=== PATIENT | male | born 1985 | race Caucasian/White ===

== ENCOUNTER 2020-03-02 08:50 | Emergency (ER) | payer MEDICAID, SELFPAY ==
[2020-03-02] VITALS (9 sets, daily range): BP systolic 104–136; BP diastolic 61–76; PULSE 71–87; RESP 16–18; TEMP 36.1–37.4; O2SAT 95–99; BMI 25.0
--- NOTE | 2020-03-02 09:50 | PC.NURSE ---
PT MOVED TO MAIN ED FOR FURTHER WORK UP.
--- NOTE | 2020-03-02 09:55 | CT_ITS ---
EXAMINATION: CT FOOT WITH CONTRAST, LEFT CLINICAL INFORMATION: Infection, abscess. COMPARISON: None TECHNIQUE: CT of the left foot is performed following intravenous administration of 85 mL Omnipaque 350 iodinated contrast. Sagittal and coronal reformats were performed. This CT examination was performed using dose optimization techniques as appropriate, variously including the following: *Automated exposure control *Adjustment of mA and/or kV according to patient size (this includes techniques or standardized protocols for targeted exams where dose is matched to indication/reason for exam; i.e. extremities or head) *Use of iterative reconstruction technique DLP: 153 mGy-cm FINDINGS: There is an irregular subcutaneous collection at the dorsal medial aspect of the midfoot measuring approximately 3.2 x 1.4 x 3.6 cm which is consistent with an abscess. Surrounding subcutaneous edema/enhancement consistent with cellulitis. No radiopaque foreign body. No underlying cortical irregularity or periostitis to suggest osteomyelitis. No acute osseous abnormalities. CT/CT foot LT w con IMPRESSION: Probable subcutaneous abscess at the dorsal medial aspect of the midfoot without evidence of underlying osteomyelitis.
--- NOTE | 2020-03-02 11:05 | ED_ITS ---
HPI - Skin/Abscess/Foreign Bdy General Chief complaint: Skin/Abscess/Foreign Body Stated complaint: abscess Time Seen by Provider: 03/02/20 09:30 Source: patient Mode of arrival: ambulatory History of Present Illness HPI narrative: 34-year-old male with no significant PMHx presenting to ED complaining of infection to left foot x8 days. Admits foot was red/inflamed and went to 4 days ago, was prescribed Bactrim /Keflex which he has been taking without relief. Reports area swelled and opened up with pus-like drainage today. Denies fever, chills, numbness /tingling complaint: abscess/boil Onset (ago): day(s) Related Data Previous Rx's Medication Instructions Recorded clindamycin HCl 450 mg PO Q8H 7 Days #32 cap 03/02/20 Allergies Allergy/AdvReac Type Severity Reaction Status Date / Time No Known Allergies Allergy Verified 03/02/20 09:10 [No Known Allergies*] Review of Systems Review of Systems: Constitutional: No Weight loss, No Fever, No Chills Musculoskeletal: + joint pain, No Myalgias, No Joint Swelling Skin: + Skin Lesions, No rash Neuro: No Weakness, No Numbness, No Paresthesias Yes all other systems are reviewed and are negative [facility] Past Medical History Attestation statement: The following information was validated with the patient. Medical History (Updated 03/02/20 @ 17:01 by VENU Farias) No known health problems Social History Social History Smoking Status: Current every day smoker Use of substances other than those prescribed or required for medical reasons: Yes Substance Use Type: Marijuana Any prior treatment program specific to substance use: No Advance Directives: Yes Advance Directives Information Provided: No Advance Directives on File: No Physical Exam Vital Signs: Vital Signs: Vital Signs Temp Pulse Resp BP Pulse Ox 03/02/20 16:55 98.8 F 85 16 128/66 03/02/20 16:22 16 03/02/20 16:12 99.4 F 87 18 106/66 97 03/02/20 15:03 18 03/02/20 14:58 99.4 F 84 18 104/64 95 03/02/20 14:00 99.2 F 71 16 120/72 97 03/02/20 12:02 99.1 F 71 16 113/61 97 03/02/20 11:04 98.8 F 85 16 119/69 03/02/20 09:07 97.0 F 78 18 136/76 99 Body Mass Index 25.0 Const: General: cooperative and healthy appearing Orientation/consciousness: patient oriented x3 Limitations: no limitations HENMT: Head: Yes normal to inspection Ears: hearing grossly normal bilaterally General nose exam: Normal external nose present Face and sinus: Yes normal facial exam Eyes: General: appearance normal, both eyes and all related structures EOM: EOMs intact bilaterally Neck: Neck: Yes normal visual inspection Resp: Effort & Inspection: normal respiratory effort Cardio: Peripheral pulses: Peripheral pulses 2+ throughout Skin: Other: + medial aspect left foot with swollen draining abscess with centralized darkening/blackness ?necrosis. + fluctuance/induration. Mild surrounding erythema, however improving compared to prior outlined area. NV intact. No streaking Neuro: General: patient oriented x3 Gait exam (Neuro): Normal gait present Extrem: General: Yes normal to inspection Course Course Course Narrative: -no leukocytosis, ESR/CRP elevated, lactate negative -1451--still pending CT read. Have called CT miter cutter multiple times, wanda piper radiologist is reading study now. Patient is anxious, would like to leave/ be discharged JUAN. I spoke to him, agreed upon giving Ativan/morphine for pain/agitation -1520--CT showing subcutaneous abscess at the dorsal medial aspect of the midfoot without evidence of an underlying osteomyelitis > performed I&D at bedside 1550-- discussed admission again with patient, which he is still reluctant and not agreeable to >>patient agreeable to be wheeled outside in wheelchair to smoke cigarette and then will stay for admission of IV abx -1656--patient was evaluated by hospitalist, and reported he no longer wants to be admitted. I discussed with patient risks of leaving including , sepsis, losing his foot, etc, and that he would need to sign out against medical advice, he verbalized understanding and is competent to make his own decisions, A&Ox3. Discussed that he is welcome to return. He verbalized understanding and will sign out AMA Procedures Abscess I/D Site: foot Side (if applicable): left Local Anesthetic: lidocaine 1% Amount of anesthesia used (mL): 3.5 Technique: incised with blade Packing used?: none MDM - Skin/Abscess/Foreign Bdy MDM Narrative Medical decision making narrative: 34-year-old male with no significant PMHx presenting to ED complaining of infection to left foot x8 days. On exam VSS, NAD, afebrile, nontoxic appearing. Concern for abscess/cellulitis vs osteomyelitis vs necrosis vs ?brown recluse Spider bite. Low concern for severe sepsis at this time. Plan: Labs, blood cultures, lactate, CT, IV Clindamycin, reassess, anticipate admission Lab Data Result diagrams: 03/02/20 11:04 03/02/20 11:03 Labs: Lab Results 03/02/20 03/02/20 03/02/20 Range/Units 11:03 11:03 11:03 WBC (4.8-10.8) X10*3/uL RBC (4.60-5.80) X10*6/uL Hgb (14.0-18.0) g/dl Hct (42-52) % MCV (80-98) fL MCH (27.0-33.0) pg MCHC (31.0-36.0) g/dl RDW (11.0-16.0) % Plt Count (160-400) X10*3/uL MPV (9.4-12.4) fL Immature Gran % (Auto) (0.0-0.4) % Neut % (Auto) (45-73) % Lymph % (Auto) (20-40) % [place] % (Auto) (2-11) % Eos % (Auto) (0-4) % Baso % (Auto) (0-2) % Lymph # (Auto) (1.2-4.9) X10*3/uL [place] # (Auto) (0.1-1.2) X10*3/uL Eos # (Auto) (0.0-0.4) X10*3/uL Baso # (Auto) (0.0-0.2) X10*3/uL Abs Immat Gran (auto) (0.00-0.03) X10*3/uL Absolute Neuts (auto) (2.0-8.3) X10*3/uL Absolute Nucleated RBC (0.0-0.012) X10*3/uL Nucleated RBC % (auto) (0.0-0.2) /100WBC ESR 69 H (0-15) MM/HR Sodium 137 (135-145) mmol/L Potassium 4.1 (3.3-5.1) mmol/l Chloride 103 (96-108) mmol/L Carbon Dioxide 23 (22-29) mmol/L Anion Gap 15 (12-20) BUN 15 (9-16) mg/dL Creatinine 0.78 (0.5-1.4) mg/dL Estim Creat Clear Calc 124.7 Estimated GFR > 60 Random Glucose 93 (60-115) mg/dL Lactic Acid 0.5 (0.5-2.0) mmol/L Calcium 8.7 (8.4-10.2) mg/dL C-Reactive Protein 11.93 H (< or = 0.50) mg/dL 03/02/20 Range/Units 11:04 WBC 9.8 (4.8-10.8) X10*3/uL RBC 4.44 L (4.60-5.80) X10*6/uL Hgb 10.5 L (14.0-18.0) g/dl Hct 32.7 L (42-52) % MCV 73.6 L (80-98) fL MCH 23.6 L (27.0-33.0) pg MCHC 32.1 (31.0-36.0) g/dl RDW 14.1 (11.0-16.0) % Plt Count 254 (160-400) X10*3/uL MPV 10.1 (9.4-12.4) fL Immature Gran % (Auto) 0.3 (0.0-0.4) % Neut % (Auto) 88.6 H (45-73) % Lymph % (Auto) 8.0 L (20-40) % [place] % (Auto) 2.9 (2-11) % Eos % (Auto) 0.0 (0-4) % Baso % (Auto) 0.2 (0-2) % Lymph # (Auto) 0.8 L (1.2-4.9) X10*3/uL [place] # (Auto) 0.3 (0.1-1.2) X10*3/uL Eos # (Auto) 0.0 (0.0-0.4) X10*3/uL Baso # (Auto) 0.0 (0.0-0.2) X10*3/uL Abs Immat Gran (auto) 0.03 (0.00-0.03) X10*3/uL Absolute Neuts (auto) 8.7 H (2.0-8.3) X10*3/uL Absolute Nucleated RBC 0.000 (0.0-0.012) X10*3/uL Nucleated RBC % (auto) 0.0 (0.0-0.2) /100WBC ESR (0-15) MM/HR Sodium (135-145) mmol/L Potassium (3.3-5.1) mmol/l Chloride (96-108) mmol/L Carbon Dioxide (22-29) mmol/L Anion Gap (12-20) BUN (9-16) mg/dL Creatinine (0.5-1.4) mg/dL Estim Creat Clear Calc Estimated GFR Random Glucose (60-115) mg/dL Lactic Acid (0.5-2.0) mmol/L Calcium (8.4-10.2) mg/dL C-Reactive Protein (< or = 0.50) mg/dL Discharge Plan Discharge Clinical Impression: Abscess Cellulitis Qualifiers: Site of cellulitis: extremity Site of cellulitis of extremity: lower extremity Laterality: left Qualified Code(s): L03.116 - Cellulitis of left lower limb Patient Disposition: Left Against Medical Advice Instructions: Cellulitis (ED), Abscess (ED), Against Medical Advice (ED) Additional Instructions: YOU HAVE A SERIOUS INFECTION IN YOUR FOOT, YOU ARE AT RISK OF LOSING YOUR FOOT, BECOMING SEPTIC, OR THE INFECTION TRAVELING TO YOUR BONE, AND POSSIBLY NEEDING AN AMPUTATION YOUR SIGNING OUT AGAINST MEDICAL ADVICE YOU NEED IV ANTIBIOTICS AND ADMISSION TO THE HOSPITAL YOUR WELCOME TO RETURN TO THE ED I SENT CLINDAMYCIN, ANTIBIOTIC TO YOUR PHARMACY IN CASE YOU DO NOT RETURN IF THE INFECTION WORSENS, YOU HAVE FEVERS, AREA BEGINS/CONTINUES TO DRAIN, REDNESS OR SWELLING WORSENS RETURN TO THE ED IMMEDIATELY Prescriptions: New clindamycin HCl 300 mg capsule 450 mg PO Q8H 7 Days Qty: 32 RF: 0 Referrals: Physician,Unknown [Primary Care Provider] - 1 day
[2020-03-02 11:14] LABS: Basophils Percent Auto 0.2 % (0-2); Hematocrit 32.7 % (42-52); Hemoglobin 10.5 g/dl (14.0-18.0); Imm Gran Abs Auto 0.03 X10*3/uL (0.00-0.03); Imm Gran Pct Auto 0.3 % (0.0-0.4); Lymphocytes Absolute Auto 0.8 X10*3/uL (1.2-4.9); MANUAL DIFF FLAG NO; Mean Corpuscular HGB Conc 32.1 g/dl (31.0-36.0); Mean Corpuscular Hemoglobin 23.6 pg (27.0-33.0); Mean Corpuscular Volume 73.6 fL (80-98); Mean Platelet Volume 10.1 fL (9.4-12.4); Monocytes Absolute Auto 0.3 X10*3/uL (0.1-1.2); Monocytes Percent Auto 2.9 % (2-11); Neutrophils Absolute Auto 8.7 X10*3/uL (2.0-8.3); Neutrophils Percent Auto 88.6 % (45-73); Platelet Count 254 X10*3/uL (160-400); Red Blood Count 4.44 X10*6/uL (4.60-5.80); Red Cell Distribution Width 14.1 % (11.0-16.0); White Blood Count 9.8 X10*3/uL (4.8-10.8)
[2020-03-02] MEDS: Clindamycin Phosphate/D5W 600 MG/50 ML PIGGYBACK 100 MG IV (11:40)
[2020-03-02 11:45] LABS: Lactic Acid 0.5 mmol/L (0.5-2.0)
[2020-03-02 11:48] LABS: Anion Gap 15 (12-20); Blood Urea Nitrogen 15 mg/dL (9-16); C Reactive Protein 11.93 mg/dL (< or = 0.50); Calcium 8.7 mg/dL (8.4-10.2); Carbon Dioxide 23 mmol/L (22-29); Chloride 103 mmol/L (96-108); Creatinine Clr Calc Pharmacy 124.7; Estimated Glomerular Filt Rate > 60; Glucose Random 93 mg/dL (60-115); Potassium 4.1 mmol/l (3.3-5.1); Sodium 137 mmol/L (135-145)
[2020-03-02] MEDS: Gabapentin 600 MG TABLET 1200 MG PO (11:53)
[2020-03-02] MEDS: Baclofen 20 MG TABLET PO (11:59)
[2020-03-02 12:30] LABS: Erythrocyte Sedimentation Rate 69 MM/HR (0-15)
[2020-03-02] MEDS: iohexoL 350 MG/ML 100 ML INFUS..BTL 85 ML IV (13:12)
[2020-03-02] MEDS: Ibuprofen 800 MG TABLET PO (13:37)
[2020-03-02] MEDS: LORazepam 2 MG/ML VIAL 1 MG IVPUSH (15:00)
[2020-03-02] MEDS: Acetaminophen 325 MG TABLET 650 MG PO (15:00)
[2020-03-02] MEDS: Morphine Sulfate 2 MG/ML CARTRIDGE IVPUSH (15:03)
[2020-03-02] MEDS: Morphine Sulfate 4 MG/ML CARTRIDGE IVPUSH (16:22)
--- NOTE | 2020-03-02 16:29 | PC.NURSE ---
PT MEDICATED WITH 4MG OF MORPHINE STATES THEY BETTER MEDICATE ME UPSTAIRS OR ILL GO OUT AND MEDICATE MYSELF
--- NOTE | 2020-03-02 16:29 | PC.NURSE ---
HOSPITALIST AT BEDSIDE FOR ADMISSION ASSESSMENT
== END 2020-03-02 17:47 | disposition home or self-care (01) ==
PROVIDERS: Physician Assistant; Emergency Provider Emergency Medicine
DX: L02.612 Cutaneous abscess of left foot (principal); M79.672 Pain in left foot; F17.200 Nicotine dependence, unspecified, uncomplicated; Z71.6 Tobacco abuse counseling
CPT/HCPCS: 10060; 36415; 73701; 80048; 83605; 85025; 85652; 86140; 87040; 87071; 87147; 87186; 87205; 96365; 96375; 96376; 99284; J2060; J2270

== ENCOUNTER 2020-03-02 18:20 | Emergency (ER) | payer MEDICAID, SELFPAY ==
[2020-03-02 18:49] VITALS: BP 134/70; PULSE 90; RESP 18; TEMP 36.9; O2SAT 98; BMI 25.0
--- NOTE | 2020-03-02 20:09 | PC.NURSE ---
At arrival to 22h bed pt became upset that he was not in a room, stated that being in hallway made him feel defensive . Pt refused to undress, refused to provide a urine sample and threatened to leave AMA for the second time today. [facility]
--- NOTE | 2020-03-02 20:11 | PC.NURSE ---
hospitalist at bedside for admission.
--- NOTE | 2020-03-02 20:14 | ED_ITS ---
HPI - Wound/Laceration General Chief Complaint: Wound/Laceration Stated Complaint: FOOT PAIN Time Seen by Provider: 03/02/20 20:08 Source: patient Mode of arrival: ambulatory Limitations: no limitations History of Present Illness HPI narrative: Returns for Left foot abs s/p I&D here earlier left AMA now requesting admit as previously rec. HX of IVD use as teen per pt - No DM States small pimple area to lateral foot 12 days ago with to urgent care given rx for keflex/ Bactrim wound has become worse Seen few hours ago in ED had labs/ lactic/ BC No new sx's Onset (ago): week(s) Location: other (Left foot ) Patient tetanus UTD: Yes Associated symptoms: pain Treatments prior to arrival: bandage Related Data Home Medications Medication Instructions Recorded Confirmed baclofen 20 mg PO TID 03/02/20 03/02/20 gabapentin 1,200 mg PO TID 03/02/20 03/02/20 Allergies Allergy/AdvReac Type Severity Reaction Status Date / Time No Known Allergies Allergy Verified 03/02/20 18:49 [No Known Allergies*] Review of Systems Review of Systems: Constitutional: No Weight loss, No Fever, No Chills, No Night Sweats, No Fatigue, No Malaise ENT/Mouth: No Hearing loss, No Ear Pain, No Nasal Congestion, No Sinus Pain, No Hoarseness, No sore throat, No Rhinorrhea, No Swallowing Difficulty Eyes: No Eye Pain, No Swelling, No Redness, No Foreign Body, No Discharge, No Vision Changes Cardiovascular: No Chest Pain, No SOB, No Dyspnea on Exertion, No Orthopnea, No Edema, No Palpitations Respiratory: No Cough, No Sputum, No Wheezing, No Smoke Exposure, No Dyspnea Gastrointestinal: No Nausea, No Vomiting, No Diarrhea, No Constipation, No abdominal Pain, No Hematochezia, No Melena Genitourinary: no irregular bleeding, No Dysuria, No Urinary Frequency, No Hematuria, No Urinary Incontinence, No Urgency, No Flank Pain, No Urinary Flow Changes, No Hesitancy Musculoskeletal: No joint pain, No Myalgias, No Joint Swelling Skin: As notedin HPI, extensive IV track young to bilateral UE, no acute inf ection Neuro: No Weakness, No Numbness, No Paresthesias, No Loss of Consciousness, No Dizziness, No Headache Psych: No Anxiety/Panic, No Depression, No SI/HI/AH/VH, No Social Issues Heme/Lymph: No Bruising, No Bleeding,No Lymphadenopathy Endocrine: No Polyuria, No Polydipsia, No Temperature Intolerance Yes all other systems are reviewed and are negative [facility] Past Medical History Attestation statement: The following information was validated with the patient. Medical History Asthma Neuropathy Social History Social History Smoking Status: Current every day smoker Substance Use Type: Marijuana Advance Directives: No Advance Directives Information Provided: No Physical Exam Vital Signs: Vital Signs: Vital Signs Temp Pulse Resp BP Pulse Ox 03/02/20 18:49 98.5 F 90 18 134/70 98 Body Mass Index 25.0 .reviewed Const: General: cooperative and healthy appearing; No acute distress or intoxicated appearing Nutritional Appearance: average body habitus Orientation/consciousness: patient oriented x3 HENMT: Head: Yes normal to inspection Ears: hearing grossly normal bilaterally Eyes: General: appearance normal, both eyes and all related structures Visual Diaz: normal visual diaz by confrontation Neck: Neck: Yes normal visual inspection and No tender Thyroid: Thyroid normal Chest: Chest palpation & inspection: normal inspection of the chest Resp: Effort & Inspection: normal respiratory effort Cardio: Jugular venous distension: no JVD GI: Inspection: Yes normal to inspection Percussion: Yes normal to percussion Auscultation: normal bowel sounds : General: Yes no CVA tenderness Back/Spine/Pelvis: Back: no CVA tenderness Skin: General skin exam: no rashes or lesions noted Neuro: General: patient oriented x3 Extrem: General: Yes normal to inspection Course Course Course Narrative: No ss of sepsis Labs/ CT foot reviewed IV started by myself due to hard stick CDW hospitalist for admit. MDM - Wound/Laceration Lab Data Result diagrams: 03/02/20 20:48 03/02/20 20:48 Labs: Lab Results 03/02/20 03/02/20 Range/Units 20:48 20:48 WBC 6.5 (4.8-10.8) X10*3/uL RBC 4.77 (4.60-5.80) X10*6/uL Hgb 11.0 L (14.0-18.0) g/dl Hct 35.6 L (42-52) % MCV 74.6 L (80-98) fL MCH 23.1 L (27.0-33.0) pg MCHC 30.9 L (31.0-36.0) g/dl RDW 14.3 (11.0-16.0) % Plt Count 274 (160-400) X10*3/uL MPV 10.2 (9.4-12.4) fL Immature Gran % (Auto) 0.2 (0.0-0.4) % Neut % (Auto) 48.0 (45-73) % Lymph % (Auto) 43.4 H (20-40) % [place] % (Auto) 8.2 (2-11) % Eos % (Auto) 0.0 (0-4) % Baso % (Auto) 0.2 (0-2) % Lymph # (Auto) 2.8 (1.2-4.9) X10*3/uL [place] # (Auto) 0.5 (0.1-1.2) X10*3/uL Eos # (Auto) 0.0 (0.0-0.4) X10*3/uL Baso # (Auto) 0.0 (0.0-0.2) X10*3/uL Abs Immat Gran (auto) 0.01 (0.00-0.03) X10*3/uL Absolute Neuts (auto) 3.1 (2.0-8.3) X10*3/uL Absolute Nucleated RBC 0.000 (0.0-0.012) X10*3/uL Nucleated RBC % (auto) 0.0 (0.0-0.2) /100WBC Sodium 141 (135-145) mmol/L Potassium 4.4 (3.3-5.1) mmol/l Chloride 102 (96-108) mmol/L Carbon Dioxide 23 (22-29) mmol/L Anion Gap 20 (12-20) BUN 15 (9-16) mg/dL Creatinine 0.92 (0.5-1.4) mg/dL Estim Creat Clear Calc 105.7 Estimated GFR > 60 Random Glucose 125 H (60-115) mg/dL Calcium 8.7 (8.4-10.2) mg/dL Total Bilirubin 0.2 (0.0-1.0) mg/dL AST 24 (5-37) U/L ALT 8 (0-40) U/L Alkaline Phosphatase 96 (39-117) U/L Total Protein 8.3 H (6.5-8.0) g/dL Albumin 4.3 (3.5-5.0) g/dL Discharge Plan Discharge Clinical Impression: Cellulitis, Abscess Patient Disposition: Admitted As Inpatient Prescriptions: No Action gabapentin 600 mg Tablet 1,200 mg PO TID RF: 0 baclofen 20 mg Tablet 20 mg PO TID RF: 0
[2020-03-02 20:54] LABS: MANUAL DIFF FLAG NO
[2020-03-02 20:55] LABS: Basophils Percent Auto 0.2 % (0-2); Hematocrit 35.6 % (42-52); Imm Gran Abs Auto 0.01 X10*3/uL (0.00-0.03); Imm Gran Pct Auto 0.2 % (0.0-0.4); Lymphocytes Absolute Auto 2.8 X10*3/uL (1.2-4.9); Lymphocytes Percent Auto 43.4 % (20-40); Mean Corpuscular HGB Conc 30.9 g/dl (31.0-36.0); Mean Corpuscular Hemoglobin 23.1 pg (27.0-33.0); Mean Corpuscular Volume 74.6 fL (80-98); Mean Platelet Volume 10.2 fL (9.4-12.4); Monocytes Absolute Auto 0.5 X10*3/uL (0.1-1.2); Monocytes Percent Auto 8.2 % (2-11); Neutrophils Absolute Auto 3.1 X10*3/uL (2.0-8.3); Platelet Count 274 X10*3/uL (160-400); Red Blood Count 4.77 X10*6/uL (4.60-5.80); Red Cell Distribution Width 14.3 % (11.0-16.0); White Blood Count 6.5 X10*3/uL (4.8-10.8)
--- NOTE | 2020-03-02 21:13 | PC.NURSE ---
pt left ER with IV in place to go to parking lot and smoke cigarette. RN and security with him .Pt wants to stay, pt now back in bed.
[2020-03-02 21:30] LABS: Alanine Aminotransferase 8 U/L (0-40); Albumin Level 4.3 g/dL (3.5-5.0); Alkaline Phosphatase 96 U/L (39-117); Anion Gap 20 (12-20); Aspartate Amino Transferase 24 U/L (5-37); Bilirubin Total 0.2 mg/dL (0.0-1.0); Blood Urea Nitrogen 15 mg/dL (9-16); Calcium 8.7 mg/dL (8.4-10.2); Carbon Dioxide 23 mmol/L (22-29); Chloride 102 mmol/L (96-108); Creatinine Clr Calc Pharmacy 105.7; Estimated Glomerular Filt Rate > 60; Glucose Random 125 mg/dL (60-115); Potassium 4.4 mmol/l (3.3-5.1); Sodium 141 mmol/L (135-145); Total Protein 8.3 g/dL (6.5-8.0)
[2020-03-02] MEDS: Piperacillin Sodium/Tazobactam 4.5 GM in 0.9 % Sodium Chloride 100 ML IV (21:31)
[2020-03-02] MEDS: 0.9 % Sodium Chloride 500 ML 1000 ML IV (21:32)
[2020-03-02 21:46] VITALS: BP 156/75; PULSE 86; RESP 16; TEMP 37.1; O2SAT 98
--- NOTE | 2020-03-02 21:47 | PC.NURSE ---
Pt is calm. In bed. Refused to give urine during trip to . Is falling asleep only slightly and is easily aroused. Pt became diaphoretic, beads of sweat on forehead. States i'm just in pain . Texting on and off. Pt is bothered by this RN's questioning and asking that I leave him alone. Pt wearing sunglasses at times while in briceño bed. Pupils 4-5mm.
--- NOTE | 2020-03-02 21:54 | PC.NURSE ---
pt refusing to give urine sample. rude to the staff, impatient and asking to go upstairs.
[2020-03-02 22:23] LABS: SARS COV2 PCR INHOUSE NEGATIVE (Negative)
--- NOTE | 2020-03-02 22:37 | PM.IMHP ---
History of Present Illness Date of Service: 03/02/20 Chief Complaint: Foot abscess This is a 34-year-old male with past medical history of asthma as well as nondiabetic neuropathy who presents to the hospital with foot abscess. Patient initially states presented to the hospital in the a.m. stating that he has had this foot abscess for 4 days. He underwent I&D in the emergency room and the plan was to admit him but patient left AMA due to family matters. He returns now stating that he would like to be admitted for treatment of his foot abscess. The abscess started 4 days ago, initially was a round small black swelling that subsequently became red, more swollen, and more painful. Patient went to urgent care and he was given Keflex as well as [facility] Medical History Asthma Neuropathy Social History Smoking Status: Current every day smoker Substance Use Type: Marijuana Advance Directives: No Advance Directives Information Provided: No Meds Allergies Allergy/AdvReac Type Severity Reaction Status Date / Time No Known Allergies Allergy Verified 03/02/20 18:49 [No Known Allergies*] Home Medications Medication Instructions Recorded Confirmed Type baclofen 20 mg PO TID 03/02/20 03/02/20 History gabapentin 1,200 mg PO TID 03/02/20 03/02/20 History Physical Exam Vital Signs and Narrative: Vital Signs: Last Vital Signs Temp 98.7 F 03/02/20 21:46 Pulse 86 03/02/20 21:46 Resp 16 03/02/20 21:46 BP 156/75 H 03/02/20 21:46 Pulse Ox 98 03/02/20 21:46 Body Mass Index 25.0 Results Labs Labs: Laboratory Tests 03/02/20 03/02/20 03/02/20 20:48 20:48 21:19 WBC 6.5 RBC 4.77 Hgb 11.0 L Hct 35.6 L MCV 74.6 L MCH 23.1 L MCHC 30.9 L RDW 14.3 Plt Count 274 MPV 10.2 Immature Gran % (Auto) 0.2 Neut % (Auto) 48.0 Lymph % (Auto) 43.4 H [place] % (Auto) 8.2 Eos % (Auto) 0.0 Baso % (Auto) 0.2 Lymph # (Auto) 2.8 [place] # (Auto) 0.5 Eos # (Auto) 0.0 Baso # (Auto) 0.0 Abs Immat Gran (auto) 0.01 Absolute Neuts (auto) 3.1 Absolute Nucleated RBC 0.000 Nucleated RBC % (auto) 0.0 Sodium 141 Potassium 4.4 Chloride 102 Carbon Dioxide 23 Anion Gap 20 BUN 15 Creatinine 0.92 Estim Creat Clear Calc 105.7 Estimated GFR > 60 Random Glucose 125 H Calcium 8.7 Total Bilirubin 0.2 AST 24 ALT 8 Alkaline Phosphatase 96 Total Protein 8.3 H Albumin 4.3 Coronavirus (PCR) NEGATIVE
[2020-03-02 22:46] VITALS: BP 122/65; PULSE 78; RESP 18; TEMP 37.3; O2SAT 97
--- NOTE | 2020-03-02 22:58 | PC.NURSE ---
PT MAKING MULTIPLE ATTEMPTS TO LEAVE ED TO SMOKE A CIGARETTE. PT WAITING TO BE ADMITTED. HAD IV IN ARM. EXPLAINED TO PATIENT MULTIPLE TIMES BY MULTIPLE STAFF THAT HE COULD NOT LEAVE TO SMOKE. SECURITY TO BEDSIDE. PT SWEARING AT STAFF, THREATENING. THIS RN ATTEMPTED TO MEDICATE PATIENT WITH ATIVAN. WHEN I WAS ABOUT TO MEDICATE PATIENT, HE RIPPED OUT HIS IV AND REFUSED TO TAKE MEDICATION. THIS PLACE IS A JOKE AND I'M LEAVING . NURSING UNHAIRING INSPECTOR IN ED, AWARE OF SITUATION.
--- NOTE | 2020-03-02 23:02 | PC.NURSE ---
pt walked out AMS, IV removed.
--- NOTE | 2020-03-02 23:24 | PC.NURSE ---
DESPITE MULTIPLE ATTEMPTS TO ACCOMODATE PATIENT AND HIS REPEATED REQUESTS TO LEAVE, PT LEFT AMA. IV IN RIGHT AC WAS REMOVED. PT WAS ABOUT TO RECEIVE ATIVAN AND VANCOMYCIN.
--- NOTE | 2020-03-02 23:31 | PC.NURSE ---
3RD ATTEMPT TO CALL REPORT TO FLOOR, TOLD TO CALL BACK IN 30 MINUTES.
== END 2020-03-02 23:26 | disposition left against medical advice (07) ==
PROVIDERS: Nurse Practitioner Primary Care; Emergency Provider Internal Medicine; PCP Physician Assistant Medical
DX: L02.612 Cutaneous abscess of left foot (principal); Z20.828 Contact with and (suspected) exposure to other viral communicable diseases; Z79.899 Other long term (current) drug therapy; F17.200 Nicotine dependence, unspecified, uncomplicated; Z71.6 Tobacco abuse counseling
CPT/HCPCS: 36415; 80053; 85025; 87635; 96365; 96367; 99284; J2543

== ENCOUNTER 2020-03-03 14:29 | Inpatient (IN) | payer MEDICAID, SELFPAY ==
[2020-03-03 14:39] VITALS: BP 128/79; PULSE 89; RESP 16; TEMP 36.9; O2SAT 100; BMI 25.0
--- NOTE | 2020-03-03 14:47 | ED.SKABFB ---
HPI - Skin/Abscess/Foreign Bdy General Chief complaint: Skin/Abscess/Foreign Body Stated complaint: foot infection Time Seen by Provider: 03/03/20 14:34 Source: patient Mode of arrival: ambulatory History of Present Illness HPI narrative: 34-year-old male with remote history of IVDA returning to the ED s/p leaving AMA twice yesterday from ED for left foot infection s/p I&D yesterday now requesting admission for IV antibiotics. Patient received 1 dose of IV clindamycin in the ED yesterday during 1st visit. Failed outpatient treatment with Keflex /Bactrim initially. Denies complaints new complaints since yesterday including fever/chills Related Data Home Medications Medication Instructions Recorded Confirmed baclofen 20 mg PO TID 03/02/20 03/02/20 gabapentin 1,200 mg PO TID 03/02/20 03/02/20 Allergies Allergy/AdvReac Type Severity Reaction Status Date / Time No Known Allergies Allergy Verified 03/02/20 18:49 [No Known Allergies*] Review of Systems Review of Systems: Constitutional: No Weight loss, No Fever, No Chills Musculoskeletal: +L foot swelling, No Myalgias Skin: +Skin Lesions, No rash Neuro: No Weakness, No Numbness Yes all other systems are reviewed and are negative [facility] Past Medical History Attestation statement: The following information was validated with the patient. Source: old records reviewed and nursing notes reviewed Medical History Asthma Neuropathy Social History Social History Smoking Status: Never smoker Use of substances other than those prescribed or required for medical reasons: Yes Substance Use Type: Marijuana Advance Directives: No Advance Directives Information Provided: Yes Physical Exam Vital Signs: Vital Signs: Vital Signs Temp Pulse Resp BP Pulse Ox 03/03/20 14:39 98.4 F 89 16 128/79 100 Body Mass Index 25.0 Const: General: cooperative and healthy appearing Orientation/consciousness: patient oriented x3 Limitations: no limitations HENMT: Head: Yes normal to inspection Ears: hearing grossly normal bilaterally General nose exam: Normal external nose present Face and sinus: Yes normal facial exam Eyes: General: appearance normal, both eyes and all related structures EOM: EOMs intact bilaterally Neuro: General: patient oriented x3 Gait exam (Neuro): Normal gait present Extrem: General: Yes normal to inspection Course Course Course Narrative: - labs unremarkable - patient admitted to hospitalist. IV Zosyn and vancomycin initiated in the ED MDM - Skin/Abscess/Foreign Bdy Lab Data Result diagrams: 03/03/20 15:02 03/03/20 15:02 Labs: Lab Results 03/03/20 03/03/20 Range/Units 15:02 15:02 WBC 4.3 L (4.8-10.8) X10*3/uL RBC 4.56 L (4.60-5.80) X10*6/uL Hgb 10.7 L (14.0-18.0) g/dl Hct 33.6 L (42-52) % MCV 73.7 L (80-98) fL MCH 23.5 L (27.0-33.0) pg MCHC 31.8 (31.0-36.0) g/dl RDW 14.2 (11.0-16.0) % Plt Count 309 (160-400) X10*3/uL MPV 10.3 (9.4-12.4) fL Immature Gran % (Auto) 0.0 (0.0-0.4) % Neut % (Auto) 60.3 (45-73) % Lymph % (Auto) 34.1 (20-40) % [place] % (Auto) 5.6 (2-11) % Eos % (Auto) 0.0 (0-4) % Baso % (Auto) 0.0 (0-2) % Lymph # (Auto) 1.5 (1.2-4.9) X10*3/uL [place] # (Auto) 0.2 (0.1-1.2) X10*3/uL Eos # (Auto) 0.0 (0.0-0.4) X10*3/uL Baso # (Auto) 0.0 (0.0-0.2) X10*3/uL Abs Immat Gran (auto) 0.00 (0.00-0.03) X10*3/uL Absolute Neuts (auto) 2.6 (2.0-8.3) X10*3/uL Absolute Nucleated RBC 0.000 (0.0-0.012) X10*3/uL Nucleated RBC % (auto) 0.0 (0.0-0.2) /100WBC Sodium 137 (135-145) mmol/L Potassium 3.9 (3.3-5.1) mmol/l Chloride 102 (96-108) mmol/L Carbon Dioxide 25 (22-29) mmol/L Anion Gap 14 (12-20) BUN 12 (9-16) mg/dL Creatinine 0.79 (0.5-1.4) mg/dL Estim Creat Clear Calc 123.1 Estimated GFR > 60 Random Glucose 147 H (60-115) mg/dL Calcium 8.9 (8.4-10.2) mg/dL Discharge Plan Discharge Clinical Impression: Cellulitis Qualifiers: Site of cellulitis: extremity Site of cellulitis of extremity: lower extremity Laterality: left Qualified Code(s): L03.116 - Cellulitis of left lower limb Patient Disposition: Admitted As Inpatient
[2020-03-03 15:10] LABS: MANUAL DIFF FLAG NO
[2020-03-03 15:13] LABS: Hematocrit 33.6 % (42-52); Hemoglobin 10.7 g/dl (14.0-18.0); Lymphocytes Absolute Auto 1.5 X10*3/uL (1.2-4.9); Lymphocytes Percent Auto 34.1 % (20-40); Mean Corpuscular HGB Conc 31.8 g/dl (31.0-36.0); Mean Corpuscular Hemoglobin 23.5 pg (27.0-33.0); Mean Corpuscular Volume 73.7 fL (80-98); Mean Platelet Volume 10.3 fL (9.4-12.4); Monocytes Absolute Auto 0.2 X10*3/uL (0.1-1.2); Monocytes Percent Auto 5.6 % (2-11); Neutrophils Absolute Auto 2.6 X10*3/uL (2.0-8.3); Neutrophils Percent Auto 60.3 % (45-73); Platelet Count 309 X10*3/uL (160-400); Red Blood Count 4.56 X10*6/uL (4.60-5.80); Red Cell Distribution Width 14.2 % (11.0-16.0); White Blood Count 4.3 X10*3/uL (4.8-10.8)
[2020-03-03] MEDS: Piperacillin Sodium/Tazobactam 3.375 GM in 0.9 % Sodium Chloride 50 ML IV (15:14)
--- NOTE | 2020-03-03 15:26 | PC.NURSE ---
pt alert and oriented, skin pwd, respirations even and unlabored. pt presents with left inner foot wound, not draining at this this time, center of the wound is about 2 inches in diameter, whitish in color, pink/reddish skin around the wound. pt states pain at 6/10 when laying in the bed, worse with movment
--- NOTE | 2020-03-03 15:29 | PM.IMHP ---
History of Present Illness Date of Service: 03/03/20 Chief Complaint: cellulitis this is a 34-year-old male who presented to the emergency department with left foot infection. He was evaluated in the emergency department yesterday and diagnosed with left foot cellulitis and abscess. He underwent I&D and was started on antibiotics. emergency room provider recommended admission to the hospital however the patient declined and left AMA. He returned today for admission. Initially noticed to a red bump that he thought could be a spider bite about a week and half ago. His foot became more swollen and he was seen at Urgent Care. He was prescribed Keflex and Bactrim. He then began developing abscess and that is what prompted his trip to the emergency department yesterday. Review of Systems Review of Systems: Yes all other systems are reviewed and are negative Constitutional: Constitutional: Denies chills and Denies fever(s) Cardiovascular: Cardiovascular: Denies chest pain Respiratory: Respiratory: Denies cough Gastrointestinal: Gastrointestinal: Denies abdominal pain [facility] Medical History Asthma Neuropathy Pertinent family history: No history of coronary artery disease, stroke, diabetes Social History Smoking Status: Never smoker Use of substances other than those prescribed or required for medical reasons: Yes Substance Use Type: Marijuana Advance Directives: No Advance Directives Information Provided: Yes Meds Allergies Allergy/AdvReac Type Severity Reaction Status Date / Time No Known Allergies Allergy Verified 03/02/20 18:49 [No Known Allergies*] Home Medications Medication Instructions Recorded Confirmed Type baclofen 20 mg PO TID 03/02/20 03/02/20 History gabapentin 1,200 mg PO TID 03/02/20 03/02/20 History Physical Exam Vital Signs and Narrative: Vital Signs: Last Vital Signs Temp 98.4 F 03/03/20 14:39 Pulse 89 03/03/20 14:39 Resp 16 03/03/20 14:39 BP 128/79 03/03/20 14:39 Pulse Ox 100 03/03/20 14:39 Body Mass Index 25.0 Const: Nutritional Appearance: well nourished Orientation/consciousness: patient oriented x3 HENMT: Head: Yes normocephalic and Yes atraumatic Eyes: Sclerae: sclerae normal Chest: Chest palpation & inspection: normal inspection of the chest Resp: Effort & Inspection: normal respiratory effort and no respiratory distress Auscultation: wheezes Cardio: Rate: regular rate Rhythm: regular rhythm GI: Palpation (GI): Soft to palpation and nontender Skin: Other: open area dorsal surface of foot s/p I&D with some purulent drainage, surrounding errythema, no fluctuance General skin exam: erythema Neuro: General: patient oriented x3 Cranial nerves: Yes CN's II-XII intact bilaterally and Yes Bilaterally intact EOM present Results Labs Labs: Laboratory Tests 03/03/20 15:02 WBC 4.3 L RBC 4.56 L Hgb 10.7 L Hct 33.6 L MCV 73.7 L MCH 23.5 L MCHC 31.8 RDW 14.2 Plt Count 309 MPV 10.3 Immature Gran % (Auto) 0.0 Neut % (Auto) 60.3 Lymph % (Auto) 34.1 Evangeline % (Auto) 5.6 Eos % (Auto) 0.0 Baso % (Auto) 0.0 Lymph # (Auto) 1.5 Evangeline # (Auto) 0.2 Eos # (Auto) 0.0 Baso # (Auto) 0.0 Abs Immat Gran (auto) 0.00 Absolute Neuts (auto) 2.6 Absolute Nucleated RBC 0.000 Nucleated RBC % (auto) 0.0 Assessment and Plan (1) Cellulitis: Qualifiers: Laterality: left Site of cellulitis: extremity Site of cellulitis of extremity: lower extremity Qualified Code(s): L03.116 - Cellulitis of left lower limb Status: Acute this is a 34-year-old male here with cellulitis/abscess of left foot yes after failing outpatient antibiotics with Bactrim and Keflex cellulitis/abscess No sepsis gram stain growing Staph aureus BCx from 03/02 negative to date - IV vancomycin - surgery, ID consults tobacco dependence smoking cessation advised -NRT nondiabetic neuropathy - continue gabapentin once med reconciliation is complete asthma some wheezing - p.r.n. nebulizer treatments DVT prophylaxis- Lovenox code status- full code this case was discussed with Dr. Tong
[2020-03-03 15:34] LABS: Anion Gap 14 (12-20); Blood Urea Nitrogen 12 mg/dL (9-16); Calcium 8.9 mg/dL (8.4-10.2); Carbon Dioxide 25 mmol/L (22-29); Chloride 102 mmol/L (96-108); Creatinine Clr Calc Pharmacy 123.1; Estimated Glomerular Filt Rate > 60; Glucose Random 147 mg/dL (60-115); Potassium 3.9 mmol/l (3.3-5.1); Sodium 137 mmol/L (135-145)
--- NOTE | 2020-03-03 15:36 | PM.EVENT ---
Event Note Event Note: Patient seen and examined independently and was present during soira portion of E/M service. Agree with midlevel's history, physical, assessment, and plan. 84-year-old male with a left foot abscess, status post I&D in ED on 03/02/2020 was at that point recommended to be admitted for IV antibiotics but left against medical advice. Now returning. Denies any fevers or chills. Left foot abscess Gram stain growing Staph aureus, has history of MRSA IV Vanco ID and surgery eval follow-up cultures
[2020-03-03] MEDS: vancomycin HCL 750 MG in 0.9 % Sodium Chloride 250 ML 265 MG IV (16:01)
[2020-03-03 16:25] VITALS: BP 117/68; PULSE 74; RESP 18; O2SAT 96
--- NOTE | 2020-03-03 16:27 | PC.NURSE ---
pt vanco running, but when this rn tried to program the pump there was no vanco 750mg over one hour. [facility] as well, checked another pump still no titration for vanco 750mg. this rn is running it as ns over one hour.
--- NOTE | 2020-03-03 17:17 | PC.NURSE ---
REPORT CALLED TO THE THIRD FLOOR
[2020-03-03 18:02] VITALS: BP 110/67; PULSE 65; RESP 16; TEMP 36.6; O2SAT 99
[2020-03-03 19:44] LABS: Erythrocyte Sedimentation Rate 60 MM/HR (0-15)
[2020-03-03 20:16] VITALS: BP 118/56; PULSE 67; RESP 18; TEMP 36.6; O2SAT 97
[2020-03-03] MEDS: Enoxaparin Sodium 40 MG/0.4 ML SYRINGE SUBCUT (21:45)
[2020-03-03] MEDS: Baclofen 20 MG TABLET PO (21:47)
[2020-03-03] MEDS: Gabapentin 600 MG TABLET 1200 MG PO (21:47)
[2020-03-03] MEDS: Acetaminophen 325 MG TABLET 650 MG PO (22:27)
[2020-03-03 23:48] VITALS: BP 97/57; PULSE 64; RESP 15; TEMP 36.1; O2SAT 98
[2020-03-04] MEDS: vancomycin HCL 1,000 MG in 0.9 % Sodium Chloride 250 ML 180 MG IV (00:52)
[2020-03-04] MEDS: 0.9 % Sodium Chloride Flush 3 ML SYRINGE IVFLUSH (00:55)
[2020-03-04] MEDS: traMADoL HCL 50 MG TABLET PO (01:51)
--- NOTE | 2020-03-04 08:48 | PM.EVENT ---
Event Note Event Note: went to see patient in room for consult for foot abscess pt just signed out AMA, has left the hospital
--- NOTE | 2020-03-04 08:53 | PM.EVENT ---
Event Note Event Note: AMA Note I was informed that the patient wanted to leave AMA. I got to the bed sinde within minutes patient was walking out utering obesinity. I therefore did not have an encounter with him. From review of the record. He had been in the hospital days earlier and left AMA and returned the next day and admitted and now is leaving AMA again with diagnosis of foot abscess/cellulitis. Again I had no interaction with the patient. Will try to contact and offer PO Abx Final Diagnosis: Left foot abscess Cellulitis of left foot.
--- NOTE | 2020-03-04 09:10 | PC.NURSE ---
PT LEFT AMA, IV REMOVED, EDUCATED ON SIGNING AMA FORMS, REFUSED TO SIGN AMA FORMS. PT VERBALIZED RISKS OF LEAVING. MD AT BEDSIDE.
== END 2020-03-04 08:00 | disposition left against medical advice (07) | DRG 383 ==
LOC: HO.ED 16:12 → HO.S3 16:32
PROVIDERS: Physician Assistant; Physician Assistant Medical; Admitting Provider Internal Medicine; Emergency Provider Internal Medicine; Visit Provider Internal Medicine
DX: L03.116 Cellulitis of left lower limb (principal); G62.9 Polyneuropathy, unspecified; L02.612 Cutaneous abscess of left foot; B95.61 Methicillin susceptible Staphylococcus aureus infection as the cause of diseases classified elsewhere; F17.210 Nicotine dependence, cigarettes, uncomplicated; Z71.6 Tobacco abuse counseling; Z79.899 Other long term (current) drug therapy
CPT/HCPCS: 36415; 80048; 80053; 85025; 85610; 85652; 85730; 96365; 96367; 96375; 99218; 99285; J1200; J1650; J1885; J2060; J2270; J2543; J3370

== ENCOUNTER 2020-03-04 10:37 | Inpatient (IN) | payer MEDICAID, SELFPAY ==
[2020-03-04 10:53] VITALS: BP 130/88; PULSE 68; RESP 16; O2SAT 98; BMI 25.2
--- NOTE | 2020-03-04 11:43 | ED_ITS ---
HPI - General Adult General Chief complaint: Extremity Injury, Lower Stated complaint: foot infection Time Seen by Provider: 03/04/20 10:38 Source: patient Mode of arrival: ambulatory Limitations: no limitations History of Present Illness HPI narrative: patient presents to ED for left foot infection. Patient has c ome into the ED many times for the same infection actually admitted and signed out AMA multiple times. Patient was admitted last night and sign out against medical advice this morning because they were not addressing his issue which was possibly going to withdrawal. Patient received IV antibiotics at least twice during the past 4 days. Patient states the wound is actually looking better and is no longer swollen and erythema has significantly decreased. Patient states he will only be readmitted if there is plan to put in place to prevent withdrawal. Related Data Home Medications Medication Instructions Recorded Confirmed baclofen 20 mg PO TID 03/02/20 03/04/20 gabapentin 1,200 mg PO TID 03/02/20 03/04/20 albuterol sulfate [Ventolin HFA] 2 puff INHALATION Q4H PRN 03/04/20 03/04/20 Allergies Allergy/AdvReac Type Severity Reaction Status Date / Time No Known Allergies Allergy Verified 03/02/20 18:49 [No Known Allergies*] Review of Systems Review of Systems: Yes all other systems are reviewed and are negative and unobtainable due to endotracheal tube Constitutional: Constitutional: Reports as per HPI and Reports no additional constitutional complaints ENT: Reports system reviewed and no additional complaints, except as documented, Reports as per HPI, Denies Normal hearing present and Denies dysphagia Cardiovascular: Cardiovascular: Reports as per HPI, Reports no additional cardiovascular complaints, Denies Abdominal Cramping after Meds, Denies Abdominal Distension, Denies acrocyanosis, Denies cool extremities, Denies painful fingertips, Denies chest pain at rest, Denies chest pain with activity, Denies Epigastric Pain, Denies dyspnea and Denies dyspnea on exertion Respiratory: Respiratory: Reports as per HPI, Reports no additional respiratory complaints, Denies change in phlegm color, Denies chest congestion, Denies cough, Denies hemoptysis, Denies excessive phlegm production, Denies pain on inspiration, Denies pain with cough, Denies dyspnea, Denies dyspnea on e xertion, Denies stridor, Denies wheezing and Denies other Gastrointestinal: Gastrointestinal: Reports as per HPI, Reports no additional gastrointestinal complaints, Denies abdominal pain, Denies belching, Denies melena, Denies bloating, Denies hematochezia, Denies change in stool character, Denies coffee ground emesis, Denies constipation, Denies GI cramping and Denies dysphagia Genitourinary: Genitourinary: Reports no additional male genitourinary complaints, Reports as per HPI, Denies hematuria, Denies oliguria, Denies difficulty urinating, Denies difficulty with ejaculations, Denies genital lesions, Denies genital pain, Denies dysuria, Denies scrotal swelling, Denies testicular pain, Denies urinary hesitancy, Denies urinary incontinence and Denies urinary urgency Musculoskeletal: Musculoskeletal: Reports no additional musculoskeletal complaints and Reports as per HPI Neurologic: Reports system reviewed and no additional complaints, except as documented, Reports as per HPI, Denies Normal hearing present and Denies behavioral changes Psychiatric: Psychiatric: Reports no additional psychiatric complaints, Reports as per HPI, Denies abnormal sleep pattern, Denies anxiety, Denies behavioral changes and Denies depression Allergic/Immunologic: Allergic/Immunologic: Denies wheezing [facility] Past Medical History Medical History (Updated 03/04/20 @ 16:20 by VENU Barnes) Asthma Neuropathy Polysubstance abuse Family History Family History (Updated 03/04/20 @ 13:56 by VENU Josue) Other No family history of coronary artery disease Social History Social History (Updated 03/04/20 @ 13:56 by VENU Josue) Household Members: Other [facility] Smoking Status: Current every day smoker Tobacco Type: Cigarette Packs Per Day: 0.5 Cigarettes Per Day: 10.0 Years Smoked: 20 Second Hand Smoke Exposure: Yes Substance Use Type: Marijuana, Opiates, Other and Painkillers Advance Directives: No Advance Directives Information Provided: No Physical Exam Vital Signs: Vital Signs: Vital Signs Pulse Resp BP Pulse Ox 03/04/20 10:53 68 16 130/88 98 Body Mass Index 25.2 Const: General: cooperative, healthy appearing, comfortable, no acute distress, well developed, awake and Physically active Orientation/consciousness: oriented to person, oriented to place and patient oriented x3 HENMT: Head: Yes normal to inspection Eyes: General: appearance normal, both eyes and all related structures Neck: Neck: Yes normal visual inspection, Yes full ROM, Yes no lymphadenopathy and Yes no meningeal signs Chest: Chest palpation & inspection: normal inspection of the chest, normal palpation of entire chest wall and no localized rib tenderness Resp: Effort & Inspection: normal respiratory effort, able to speak in complete sentences, normal respiratory pattern, no audible wheezes, no grunting, not labored, no nasal flaring, no paradoxical thoraco-abdom movements, no respiratory distress, no retractions, no segmental paradox chest wall movement, no stridor, not tachypneic and no tracheal deviation Cardio: Jugular venous distension: no JVD Heart sounds: S1 normal heart sound present and S2 normal heart sound present GI: Inspection: Yes normal to inspection and No abdominal wall ecchymosis Palpation (GI): Soft to palpation, not firm, nontender, no guarding and not rigid Percussion: Yes normal to percussion Auscultation: normal bowel sounds : General: No CVA tenderness and Yes no CVA tenderness Back/Spine/Pelvis: Back: no CVA tenderness, No CVA tenderness and No back tenderness Skin: General skin exam: no rashes or lesions noted Neuro: General: oriented to person, oriented to place, patient oriented x3, gait normal, no meningeal signs and CN's II-XI intact bilaterally Cranial nerves: No Normal hearing present Extrem: Other: Left lower extremity positive for ulcerated room wound on dorsal aspect of foot with slight erythema surrounding it. Patient states erythema has significantly improved and foot is no longer swollen. Presently foot is no longer swelling and not erythematous ,only near ulcer. Vascular exam is intact. Right foot is normal Course Course Course Narrative: repeat labs ordered and antibiotics. Spoke with hospitalist Nabila to see if they will agree except patient to the medical floor. Also spoke with Vitor maria de jesus team consulted to speak with patient the need of possible plan to prevent withdrawal. Reevaluation(s) Reevaluation #1: Vitor of resident care technician spoke with patient and developed the pain. Patient will be given narcotics to deal with pain and also will prevent him to go withdrawal. Once date and time for patient to be discharged from floor is known patient would stop being given narcotic so he could be sent with Suboxone on discharge Time: 12:51 Reevaluation #2: patient admitted to the hospital for IV antibiotics. Time: 16:19 Medical Decision Making MDM Narrative Medical decision making narrative: left foot cellulitis Lab Data Result diagrams: 03/04/20 11:41 03/04/20 11:40 Labs: Lab Results 03/04/20 03/04/20 03/04/20 Range/Units 11:40 11:40 11:41 WBC 4.5 L (4.8-10.8) X10*3/uL RBC 5.07 (4.60-5.80) X10*6/uL Hgb 11.7 L (14.0-18.0) g/dl Hct 38.2 L (42-52) % MCV 75.3 L (80-98) fL MCH 23.1 L (27.0-33.0) pg MCHC 30.6 L (31.0-36.0) g/dl RDW 14.3 (11.0-16.0) % Plt Count 344 (160-400) X10*3/uL MPV 10.2 (9.4-12.4) fL Immature Gran % (Auto) 0.2 (0.0-0.4) % Neut % (Auto) 54.5 (45-73) % Lymph % (Auto) 40.2 H (20-40) % [facility] % (Auto) 4.9 (2-11) % Eos % (Auto) 0.0 (0-4) % Baso % (Auto) 0.2 (0-2) % Lymph # (Auto) 1.8 (1.2-4.9) X10*3/uL [facility] # (Auto) 0.2 (0.1-1.2) X10*3/uL Eos # (Auto) 0.0 (0.0-0.4) X10*3/uL Baso # (Auto) 0.0 (0.0-0.2) X10*3/uL Abs Immat Gran (auto) 0.01 (0.00-0.03) X10*3/uL Absolute Neuts (auto) 2.4 (2.0-8.3) X10*3/uL Absolute Nucleated RBC 0.000 (0.0-0.012) X10*3/uL Nucleated RBC % (auto) 0.0 (0.0-0.2) /100WBC PT 13.5 H (10.8-13.0) SEC INR 1.1 (0.9-1.1) APTT 34.3 (24.1-38.0) SEC Sodium 142 (135-145) mmol/L Potassium 4.2 (3.3-5.1) mmol/l Chloride 103 (96-108) mmol/L Carbon Dioxide 28 (22-29) mmol/L Anion Gap 15 (12-20) BUN 8 L (9-16) mg/dL Creatinine 0.71 (0.5-1.4) mg/dL Estim Creat Clear Calc 137.0 Estimated GFR > 60 Random Glucose 95 D (60-115) mg/dL Calcium 9.5 (8.4-10.2) mg/dL Total Bilirubin 0.5 (0.0-1.0) mg/dL AST 21 (5-37) U/L ALT 14 (0-40) U/L Alkaline Phosphatase 94 (39-117) U/L Total Protein 8.5 H (6.5-8.0) g/dL Albumin 4.7 (3.5-5.0) g/dL Discharge Plan Discharge Clinical Impression: Cellulitis Patient Disposition: Admitted As Inpatient Interventions: Admission Worksheet (ED) Last Done: 03/04/20 14:32
[2020-03-04 11:48] LABS: MANUAL DIFF FLAG NO
[2020-03-04 11:52] LABS: Basophils Percent Auto 0.2 % (0-2); Hematocrit 38.2 % (42-52); Hemoglobin 11.7 g/dl (14.0-18.0); Imm Gran Abs Auto 0.01 X10*3/uL (0.00-0.03); Imm Gran Pct Auto 0.2 % (0.0-0.4); Lymphocytes Absolute Auto 1.8 X10*3/uL (1.2-4.9); Lymphocytes Percent Auto 40.2 % (20-40); Mean Corpuscular HGB Conc 30.6 g/dl (31.0-36.0); Mean Corpuscular Hemoglobin 23.1 pg (27.0-33.0); Mean Corpuscular Volume 75.3 fL (80-98); Mean Platelet Volume 10.2 fL (9.4-12.4); Monocytes Absolute Auto 0.2 X10*3/uL (0.1-1.2); Monocytes Percent Auto 4.9 % (2-11); Neutrophils Absolute Auto 2.4 X10*3/uL (2.0-8.3); Neutrophils Percent Auto 54.5 % (45-73); Platelet Count 344 X10*3/uL (160-400); Red Blood Count 5.07 X10*6/uL (4.60-5.80); Red Cell Distribution Width 14.3 % (11.0-16.0); White Blood Count 4.5 X10*3/uL (4.8-10.8)
[2020-03-04 11:59] LABS: INTERNATIONAL NORM RATIO 1.1 (0.9-1.1); Prothrombin Time 13.5 SEC (10.8-13.0)
[2020-03-04 12:01] LABS: Partial Thromboplastin Time 34.3 SEC (24.1-38.0)
[2020-03-04 12:18] LABS: Alanine Aminotransferase 14 U/L (0-40); Albumin Level 4.7 g/dL (3.5-5.0); Alkaline Phosphatase 94 U/L (39-117); Anion Gap 15 (12-20); Aspartate Amino Transferase 21 U/L (5-37); Bilirubin Total 0.5 mg/dL (0.0-1.0); Blood Urea Nitrogen 8 mg/dL (9-16); Calcium 9.5 mg/dL (8.4-10.2); Carbon Dioxide 28 mmol/L (22-29); Chloride 103 mmol/L (96-108); Estimated Glomerular Filt Rate > 60; Glucose Random 95 mg/dL (60-115); Potassium 4.2 mmol/l (3.3-5.1); Sodium 142 mmol/L (135-145); Total Protein 8.5 g/dL (6.5-8.0)
--- NOTE | 2020-03-04 12:34 | MHC.CARE ---
Addiction Consult Service note: Patient is a 34 year old Kenyan speaking male who presented to [facility] ED due to a foot infection after leaving AMA multiple times over the last several days. Patient reports that he left because he did not want to experience withdrawal, stating that withdrawal, combined with his foot infection, in addition to his PTSD and discomfort around people, made it difficult for him to remain in care. Patient reports a desire to get his foot infection under control and he also wants to get on Suboxone, however he does not feel like he can deal with the withdrawal for the amount of time needed in order to initiate Suboxone while his foot is in the state that it is in. Patient reports pain related to the infection, stating that it hurts when he moves it and that he also gets random stabbing pain at times, however he states he has a high pain tolerance and does not like to complain about pain. Patient reports a desire to have his pain managed while his foot gets treated and for him to get off pain medication with enough time for him to initiate Suboxone before discharge. Patient feels that when he is closer to discharge and his foot is doing better, he will be able to manage the withdrawal for the period needed in order to initiate Suboxone. Patient reports a fear of precipitated withdrawal, having experienced it in the past. Patient reports numerous life stressors related to having to provide for his child and a fear of losing his foot or going back to [facility]. Discussed case with patient's RN, ED provider and Hospitalist. This publications writer available as needed to discuss additional treatment options with patient. This publications writer will check in with patient on the medical floor if patient is here tomorrow.
[2020-03-04] MEDS: vancomycin HCL 1,000 MG in 0.9 % Sodium Chloride 250 ML 270 MG IV (12:36)
--- NOTE | 2020-03-04 12:37 | PC.NURSE ---
antibiotics started per order
--- NOTE | 2020-03-04 13:53 | PM.IMHP ---
History of Present Illness Date of Service: 03/04/20 <VENU Josue Last Filed: 03/04/20 14:14> Chief Complaint: foot pain <VNEU Josue Last Filed: 03/04/20 14:14> this is a 34-year-old male who presented to the emergency department with left foot infection. He was evaluated in the emergency department yesterday and diagnosed with left foot cellulitis and abscess. He underwent I&D and was started on antibiotics. emergency room provider recommended admission to the hospital however the patient declined and left AMA. He returned today for admission. Initially noticed to a red bump that he thought could be a spider bite about a week and half ago. His foot became more swollen and he was seen at Urgent Care. He was prescribed Keflex and Bactrim. He then began developing abscess and that is what prompted his trip to the emergency department. he was admitted, started on vancomycin but unfortunately left against medical advice again. He was once again presented to the emergency department with ongoing pain in his foot. He had previously been denying substance abuse but now admits to using dope and buying pain killers off the street. States he had left because he was unable to tolerate the pain in his foot. He reports struggling with PTSD and anger issues and has been easily triggered while in the hospital. At this time, he wants to stay to receive adequate treatment for his foot. He is also interested in treatment for substance abuse. He was evaluated by Addiction Medicine in the ED and he is agreeable to plan. <VENU Josue - Last Filed: 03/04/20 14:14> Review of Systems Review of Systems: Yes all other systems are reviewed and are negative <VENU Josue Last Filed: 03/04/20 14:14> Constitutional: Constitutional: Denies chills and Denies fever(s) <VENU Josue Last Filed: 03/04/20 14:14> Cardiovascular: Cardiovascular: Denies chest pain and Denies dyspnea on exertion <VENU Josue Last Filed: 03/04/20 14:14> Respiratory: Respiratory: Denies dyspnea on exertion <VENU Josue Last Filed: 03/04/20 14:14> PMFSH Medical History: Medical History Asthma Neuropathy Polysubstance abuse <VENU Josue - Last Filed: 03/04/20 14:14> Family History: Family History Other No family history of coronary artery disease <VENU Josue - Last Filed: 03/04/20 14:14> Social History: Social History Household Members: Children Housing: Apartment Alcohol intake: never Smoking Status: Current every day smoker Tobacco Type: Cigarette Packs Per Day: 0.5 Cigarettes Per Day: 10.0 Years Smoked: 6 Second Hand Smoke Exposure: No Substance Use Type: Heroin <VENU Josue - Last Filed: 03/04/20 14:14> Meds Allergies/Adverse reactions: Allergies Allergy/AdvReac Type Severity Reaction Status Date / Time No Known Allergies Allergy Verified 03/02/20 18:49 [No Known Allergies*] <VENU Josue - Last Filed: 03/04/20 14:14> Home medications: Home Medications Medication Instructions Recorded Confirmed Type baclofen 20 mg PO TID 03/02/20 03/04/20 History gabapentin 1,200 mg PO TID 03/02/20 03/04/20 History albuterol sulfate [Ventolin HFA] 2 puff INHALATION Q4H PRN 03/04/20 03/04/20 History <VENU Josue - Last Filed: 03/04/20 14:14> Physical Exam Vital Signs and Narrative: Vital Signs: Last Vital Signs Pulse 68 03/04/20 10:53 Resp 16 03/04/20 10:53 BP 130/88 03/04/20 10:53 Pulse Ox 98 03/04/20 10:53 Body Mass Index 25.2 <VENU Josue - Last Filed: 03/04/20 14:14> Const: Nutritional Appearance: well nourished <VENU Josue - Last Filed: 03/04/20 14:14> Orientation/consciousness: patient oriented x3 <VENU Josue - Last Filed: 03/04/20 14:14> HENMT: Head: Yes normocephalic and Yes atraumatic <VENU Josue - Last Filed: 03/04/20 14:14> Eyes: Sclerae: sclerae normal <VENU Josue - Last Filed: 03/04/20 14:14> Chest: Chest palpation & inspection: normal inspection of the chest <VENU Josue - Last Filed: 03/04/20 14:14> Resp: Effort & Inspection: normal respiratory effort and no respiratory distress <VENU Josue - Last Filed: 03/04/20 14:14> Auscultation: clear to auscultation bilaterally <VENU Josue - Last Filed: 03/04/20 14:14> Cardio: Rate: regular rate <VENU Josue - Last Filed: 03/04/20 14:14> Rhythm: regular rhythm <VENU Josue - Last Filed: 03/04/20 14:14> GI: Palpation (GI): Soft to palpation and nontender <VENU Josue - Last Filed: 03/04/20 14:14> Skin: General skin exam: no rashes or lesions noted <VENU Josue - Last Filed: 03/04/20 14:14> Neuro: General: patient oriented x3 <VENU Josue - Last Filed: 03/04/20 14:14> Cranial nerves: Yes CN's II-XII intact bilaterally and Yes Bilaterally intact EOM present <VENU Josue - Last Filed: 03/04/20 14:14> Extrem: Other: abscess s/p I&D left medial aspect dorsum of midfoot, mild surrounding erythema, purulent drainage <VENU Josue - Last Filed: 03/04/20 14:14> Results Labs Labs: Laboratory Tests 03/04/20 03/04/20 03/04/20 11:40 11:40 11:41 WBC 4.5 L RBC 5.07 Hgb 11.7 L Hct 38.2 L MCV 75.3 L MCH 23.1 L MCHC 30.6 L RDW 14.3 Plt Count 344 MPV 10.2 Immature Gran % (Auto) 0.2 Neut % (Auto) 54.5 Lymph % (Auto) 40.2 H Bertie % (Auto) 4.9 Eos % (Auto) 0.0 Baso % (Auto) 0.2 Lymph # (Auto) 1.8 Bertie # (Auto) 0.2 Eos # (Auto) 0.0 Baso # (Auto) 0.0 Abs Immat Gran (auto) 0.01 Absolute Neuts (auto) 2.4 Absolute Nucleated RBC 0.000 Nucleated RBC % (auto) 0.0 PT 13.5 H INR 1.1 APTT 34.3 Sodium 142 Potassium 4.2 Chloride 103 Carbon Dioxide 28 Anion Gap 15 BUN 8 L Creatinine 0.71 Estim Creat Clear Calc 137.0 Estimated GFR > 60 Random Glucose 95 D Calcium 9.5 Total Bilirubin 0.5 AST 21 ALT 14 Alkaline Phosphatase 94 Total Protein 8.5 H Albumin 4.7 <VENU Josue - Last Filed: 03/04/20 14:14> Assessment and Plan (1) Cellulitis: Qualifiers: Laterality: left Site of cellulitis: extremity Site of cellulitis of extremity: lower extremity Qualified Code(s): L03.116 - Cellulitis of left lower limb <VENU Josue - Last Filed: 03/04/20 14:14> Status: Acute <VENU Josue - Last Filed: 03/04/20 14:14> this is a 34-year-old male here who returns with cellulitis/abscess of left foot after failing outpatient antibiotics with Bactrim and Keflex and leaving AMA on multiple occasions. cellulitis/abscess No sepsis gram stain growing Staph aureus BCx from 03/02 negative to date - IV vancomycin - surgery, ID consults - pain control tobacco dependence smoking cessation advised -NRT nondiabetic neuropathy - continue gabapentin once med reconciliation is complete Polysubstance abuse initially denying substance use. Now admitting to using drugs seen by care team as well as addiction medicine in the ED. hope to start Suboxone on discharge with a goal of maintaining sobriety DVT prophylaxis- Lovenox code status- full code <VENU Josue - Last Filed: 03/04/20 14:14>
[2020-03-04] MEDS: Morphine Sulfate 4 MG/ML CARTRIDGE IVPUSH (14:17)
[2020-03-04] MEDS: Nicotine 14 MG PATCH.TD24 TRANSDERMA (14:21)
--- NOTE | 2020-03-04 14:30 | PC.NURSE ---
report given to the floor, pt w raul, medicated for foot pain, pleasant and thankful, patch given for nicotine
[2020-03-04 14:45] VITALS: BP 125/68; PULSE 92; RESP 20; TEMP 36.6; O2SAT 99
[2020-03-04] MEDS: oxyCODONE HCl Immed Release 5 MG TABLET 10 MG PO ×2 (15:26→21:55)
[2020-03-04 15:34] VITALS: BP 129/70; PULSE 61; RESP 18; TEMP 36.5; O2SAT 99
--- NOTE | 2020-03-04 17:25 | PM.CNGS ---
History of Present Illness Consult details Consult date: 03/04/20 Reason for consult: wound care Requesting physician: Nabila Stuart Narrative: Edward Hunt a 34-year-old male patient presenting with a left foot infection. He states the wound started several days ago as a small blister located over the ankle. He initially felt this was due to an insect bite. The lesion seem to increase in size with increased redness surrounding the blister therefore a presented to a urgent care. He was subsequently placed on Keflex and Bactrim but noted the redness to increase in severity and the blister increase in size. He reports the blister became dark and very painful. He subsequently presented to the emergency department. Incision and drainage was performed and a large purulence collection drained. The plan was for admission for IV antibiotics or the patient subsequently signed out AMA. When the pain increased in severity while at home he decided to return to the emergency department for admission. He is now being treated on the hospitalist service with IV antibiotics. Surgical consultation was requested for further wound management. He reports feeling much improved with decreased pain in the wound. He denies any fever or chills. Review of Systems Constitutional: Constitutional: Denies chills, Denies fever(s) and Denies headache(s) ENT: Denies headache(s) Respiratory: Respiratory: Reports no additional respiratory complaints Gastrointestinal: Gastrointestinal: Reports no additional gastrointestinal complaints Genitourinary: Genitourinary: Reports no additional male genitourinary complaints Musculoskeletal: Musculoskeletal: Reports joint swelling ( Left leg as noted in HPI) Integumentary/Breasts: Comments: abscess as noted in HPI Neurologic: Reports system reviewed and no additional complaints, except as documented, Reports as per HPI, Denies behavioral changes and Denies headache(s) Psychiatric: Psychiatric: Denies behavioral changes Hematologic/Lymphatic: Hematologic/Lymphatic: Reports no additional hematologic/lymphatic complaints PMFSH Past Medical History Medical History Asthma Neuropathy Polysubstance abuse Family History Family History Other No family history of coronary artery disease Social History Social History Household Members: Other Housing: Condominium Smoking Status: Current every day smoker Tobacco Type: Cigarette Packs Per Day: 0.5 Cigarettes Per Day: 10.0 Years Smoked: 20 Second Hand Smoke Exposure: Yes Substance Use Type: Marijuana, Opiates, Other and Painkillers Advance Directives: No Advance Directives Information Provided: No Meds Allergies Allergy/AdvReac Type Severity Reaction Status Date / Time No Known Allergies Allergy Verified 03/02/20 18:49 [No Known Allergies*] Home Medications Medication Instructions Recorded Confirmed Type baclofen 20 mg PO TID 03/02/20 03/04/20 History gabapentin 1,200 mg PO TID 03/02/20 03/04/20 History albuterol sulfate [Ventolin HFA] 2 puff INHALATION Q4H PRN 03/04/20 03/04/20 History Physical Exam Vital Signs: Vital Signs: Vital Signs Temp Pulse Resp BP Pulse Ox 03/04/20 15:34 97.7 F 61 18 129/70 99 03/04/20 14:45 97.9 F 92 20 125/68 99 03/04/20 10:53 68 16 130/88 98 Body Mass Index 25.2 Const: General: cooperative, comfortable and no acute distress Eyes: Sclerae: sclerae normal Resp: Effort & Inspection: normal respiratory effort Auscultation: clear to auscultation bilaterally GI: Inspection: Yes normal to inspection Palpation (GI): nontender Skin: General skin exam: no rashes or lesions noted Lesions: lesion noted ( left leg as noted below) Extrem: Other: left foot with an open wound over the dorsum just below the ankle measuring approximately 3 cm in diameter. There is a blue ink surrounding the ulcer which previously marked erythema. No current erythema is identified this time. No palpable fluctuance is identified. There is minimal tenderness to deep palpation and no subcutaneous air palpable. No necrotic skin is identified on the surface. Wound was dressed with dura fiber Ag followed by dry sterile dressings. General: Yes full ROM Ankle/foot/toe images: 1. Site of ulcer Results Labs Result diagrams: 03/04/20 11:41 03/04/20 11:40 Labs: Abnormal lab results 03/04/20 03/04/20 03/04/20 Range/Units 11:40 11:40 11:41 WBC 4.5 L (4.8-10.8) X10*3/uL Hgb 11.7 L (14.0-18.0) g/dl Hct 38.2 L (42-52) % MCV 75.3 L (80-98) fL MCH 23.1 L (27.0-33.0) pg MCHC 30.6 L (31.0-36.0) g/dl Lymph % (Auto) 40.2 H (20-40) % PT 13.5 H (10.8-13.0) SEC BUN 8 L (9-16) mg/dL Total Protein 8.5 H (6.5-8.0) g/dL Short CBC 03/04/20 Range/Units 11:41 WBC 4.5 L (4.8-10.8) X10*3/uL Hgb 11.7 L (14.0-18.0) g/dl Hct 38.2 L (42-52) % Plt Count 344 (160-400) X10*3/uL BMP 03/04/20 11:40 Sodium 142 Potassium 4.2 Chloride 103 Carbon Dioxide 28 BUN 8 L Creatinine 0.71 Calcium 9.5 Liver Function 03/04/20 Range/Units 11:40 Total Bilirubin 0.5 (0.0-1.0) mg/dL AST 21 (5-37) U/L ALT 14 (0-40) U/L Alkaline Phosphatase 94 (39-117) U/L Albumin 4.7 (3.5-5.0) g/dL All other labs normal. Assessment and Plan (1) Cellulitis: Status: Acute (2) Abscess of left foot: Status: Acute The patient presents with a cellulitis and abscess of the left foot possibly due to an insect bite or other injury. The wound is now open with no undrained collections identified. The erythema surrounding the ulcer is much improved and there is no evidence of skin necrosis or subcutaneous emphysema. I applied the silver alginate pad and suggested applying this daily. Agree with the antibiotics as ordered. I will follow the patient during this hospitalization and will see him as an outpatient as well upon discharge.
--- NOTE | 2020-03-04 17:48 | P.EN_ITS ---
Event Note Event Note: Date of Service: March 04, 2020 Addendum to H and P by Mid-level Provider I saw and examined the patient and participated in the soria portion of the E/M service. I agree with the history and exam as documented by PA. He is admitted for foot abscess and Cellulitis and has singed AMA just hours earlier and anoth er AMA the day before. Will admit for IV Abx and jessery consult for debridment. Also consult addiction service for opioid dependence. Otherwise, I agree with assessment and plan as outlined in the H and P.
[2020-03-04] MEDS: 0.9 % Sodium Chloride Flush 3 ML SYRINGE IVFLUSH (17:57)
[2020-03-04 20:00] VITALS: BP 105/55; PULSE 66; RESP 18; TEMP 36.6; O2SAT 97
[2020-03-04] MEDS: Ketorolac Tromethamine 30 MG/ML VIAL IVPUSH (20:32)
[2020-03-04] MEDS: Gabapentin 600 MG TABLET 1200 MG PO (20:34)
[2020-03-04] MEDS: Baclofen 20 MG TABLET PO (20:35)
[2020-03-04 20:36] VITALS: BP 105/55; PULSE 66
[2020-03-04] MEDS: cloNIDine HCL 0.1 MG TABLET PO (20:36)
[2020-03-04] MEDS: LORazepam 0.5 MG TABLET PO (21:53)
[2020-03-05] VITALS: BP 98/59; PULSE 57; RESP 18; TEMP 36.3
[2020-03-05] MEDS: 0.9 % Sodium Chloride Flush 3 ML SYRINGE IVFLUSH (00:01)
[2020-03-05] MEDS: diphenhydrAMINE HCL 50 MG/ML VIAL 25 MG IVPUSH (01:31)
[2020-03-05] MEDS: LORazepam 2 MG/ML VIAL 0.5 MG IVPUSH (03:12)
[2020-03-05 04:00] VITALS: BP 117/67; PULSE 64; RESP 20; TEMP 36.1; O2SAT 97
[2020-03-05] MEDS: traZODone HCL 50 MG TABLET PO (04:01)
[2020-03-05] MEDS: hydrOXYzine HCL 25 MG TABLET PO (04:01)
[2020-03-05] MEDS: diphenhydrAMINE HCL 50 MG/ML VIAL IVPUSH (04:01)
--- NOTE | 2020-03-05 07:28 | PC.NURSE ---
11P-7A; 0030 PATIENT REQUESTED MEDICATION TO HELP HIM SLEEP. DR. MEZA NOTIFIED VIA TIGERCONNECT. IV BENADRYL ORDERED AND ADMINISTERED. 0230 PATIENT AGAIN REQUESTING FOR SOMETHING FOR SLEEP, PATIENT IS ANGRY, AGITATED. NOTIFIED DR. MEZA VIA TIGERCONNECT, IV ATIVAN ORDERED AND ADMINISTERED. PATIENT CONTINUED TO CALL NURSE INTO ROOM TO REPORT HE IS NOT ABLE TO GET REST AND NEEDS MORE MEDICATION. 0345, THIS RN CONTACTED DR. SUSANA MD AT BEDSIDE SPEAKING TO PATIENT. PATIENT CONTINUED ON WITH SIMILAR BEHAVIOR THE WHOLE NIGHT. AT 0530, PATIENT LEFT AMA. IV, #20 LAC DISCONTINUED, IV WAS TAKEN OUT, PATIENT REFUSED TO SIGN AMA FORM. NURSING FINISH SAW OPERATOR MADE AWARE, DR. MEZA MADE AWARE THAT PATIENT LEFT AMA. SECURITY WAS ALSO NOTIFIED THAT PATIENT LEFT THE BUILDING INDEPENDENTLY. INCIDENT REPORT WAS FILED.
--- NOTE | 2020-03-05 08:38 | PM.EVENT ---
Event Note Event Note: AMA Note This patient who was admitted for foot abscess and cellulitis and has signed out AMA on 2 separate occasions was admitted yesterday hours after signing AMA. He was seen by surgeon yesterday and was on IV antibiotics. He was seen by addiction service with treatment plan instituted and he was comfortable with the plan. Unfortunately I was informed that he left AMA at 645 and therefore I was not present to further advise him. I will make an effort to contact and offer oral antibiotics. Final diagnosis: Abscess of the left foot Cellulitis of the left foot
--- NOTE | 2020-03-05 10:16 | MHC.CM.PN ---
Patient left AMA early this morning. He had left [facility] [place], prior to case management hours of operation.
== END 2020-03-05 05:30 | disposition left against medical advice (07) | DRG 383 ==
LOC: HO.ED 11:02 → HO.S3 13:46
PROVIDERS: Physician Assistant; Admitting Provider Internal Medicine; Emergency Provider Emergency Medicine; PCP Physician Assistant Medical; Visit Provider Internal Medicine
DX: L03.116 Cellulitis of left lower limb (principal); G62.9 Polyneuropathy, unspecified; L02.612 Cutaneous abscess of left foot; F19.10 Other psychoactive substance abuse, uncomplicated; B95.61 Methicillin susceptible Staphylococcus aureus infection as the cause of diseases classified elsewhere; J45.909 Unspecified asthma, uncomplicated; F17.210 Nicotine dependence, cigarettes, uncomplicated; Z71.6 Tobacco abuse counseling; Z79.899 Other long term (current) drug therapy
CPT/HCPCS: 36415; 80053; 85025; 85610; 85730; 96365; 96375; 99218; 99285; J1200; J1885; J2060; J2270; J3370

== ENCOUNTER 2020-03-05 12:31 | Emergency (ER) | payer MEDICAID, SELFPAY ==
[2020-03-05 12:42] VITALS: BP 132/78; PULSE 81; RESP 18; TEMP 36.6; O2SAT 98; BMI 25.0
[2020-03-05 14:00] VITALS: BP 119/75; PULSE 80; RESP 18; TEMP 36.6; O2SAT 96
--- NOTE | 2020-03-05 14:20 | ED_ITS ---
HPI - General Adult General Chief complaint: Extremity Injury, Lower Stated complaint: foot pain Time Seen by Provider: 03/05/20 12:41 Source: patient Mode of arrival: ambulatory Limitations: no limitations History of Present Illness HPI narrative: Patient presents to ED for treatment for opioid use disorder. patient came to the ED for left foot evaluation. Patient signed out against medical advice this morning from the medicine surgery floor because he was not receiving adequate narcotic control. Treatment as needed as per patient. Patient does states himself that the left foot/cellulitis wound is improving. Related Data Home Medications Medication Instructions Recorded Confirmed baclofen 20 mg PO TID 03/02/20 03/04/20 gabapentin 1,200 mg PO TID 03/02/20 03/04/20 albuterol sulfate [Ventolin HFA] 2 puff INHALATION Q4H PRN 03/04/20 03/04/20 Previous Rx's Medication Instructions Recorded buprenorphine-naloxone [Suboxone] 1 film BUCCAL BID #14 ea 03/05/20 doxycycline monohydrate 100 mg PO BID #20 cap 03/05/20 Allergies Allergy/AdvReac Type Severity Reaction Status Date / Time No Known Allergies Allergy Verified 03/02/20 18:49 [No Known Allergies*] Review of Systems Review of Systems: Yes all other systems are reviewed and are negative Constitutional: Constitutional: Reports as per HPI, Reports no additional constitutional complaints, Denies anorexia, Denies body ache(s), Denies chills, Denies daytime sleepiness, Denies excessive sweating, Denies fatigue, Denies fever(s), Denies frequent falls, Denies headache(s), Denies increased appetite and Denies lethargy Eyes: Eyes: Reports as per HPI and Reports no additional eye complaints ENT: Reports system reviewed and no additional complaints, except as documented, Reports as per HPI, Reports Normal hearing present, Denies bleeding gums, Denies dry mouth, Denies ear discharge and Denies headache(s) Cardiovascular: Cardiovascular: Reports as per HPI and Reports no additional cardiovascular complaints Respiratory: Respiratory: Reports as per HPI and Reports no additional respiratory complaints Gastrointestinal: Gastrointestinal: Reports as per HPI and Reports no additional gastrointestinal complaints Genitourinary: Genitourinary: Reports no additional male genitourinary complaints and Reports as per HPI Musculoskeletal: Musculoskeletal: Reports no additional musculoskeletal complaints and Reports as per HPI Comments: Lower extremity for infection Neurologic: Reports Normal hearing present, Denies frequent falls and Denies headache(s) Endocrine: Endocrine: Denies excessive sweating and Denies fatigue PMF Past Medical History Medical History Asthma Neuropathy Polysubstance abuse Family History Family History Other No family history of coronary artery disease Social History Social History Household Members: Children Housing: Apartment Alcohol intake: never Smoking Status: Current every day smoker Tobacco Type: Cigarette Packs Per Day: 0.5 Cigarettes Per Day: 10.0 Years Smoked: 6 Second Hand Smoke Exposure: No Substance Use Type: Heroin Physical Exam Vital Signs: Vital Signs: Vital Signs Temp Pulse Resp BP Pulse Ox 03/05/20 14:00 97.8 F 80 18 119/75 96 03/05/20 12:42 97.9 F 81 18 132/78 98 Body Mass Index 25.0 Const: General: cooperative, healthy appearing, comfortable, no acute distress, well developed, alert and awake Orientation/consciousness: oriented to person, oriented to place, oriented to time and patient oriented x3 HENMT: Head: Yes normal to inspection and Yes No palpable skull fracture present Ears: hearing grossly normal bilaterally General nose exam: Normal external nose present Face and sinus: Yes normal facial exam Eyes: General: appearance normal, both eyes and all related structures Neck: Neck: Yes normal visual inspection, Yes full ROM, Yes no lymphadenopathy and Yes no meningeal signs Chest: Chest palpation & inspection: normal inspection of the chest, normal palpation of entire chest wall and no localized rib tenderness Resp: Effort & Inspection: normal respiratory effort, not able to speak in complete sentences, no grunting, not labored, no nasal flaring, no paradoxical thoraco-abdom movements, no pursed lip breathing, no retractions, no segmental paradox chest wall movement, no stridor, not tachypneic, no tracheal deviation and no tripod positioning Auscultation: clear to auscultation bilaterally, no crackles, no rales, no rhonchi, no wheezes and breath sounds present Cardio: Jugular venous distension: no JVD Heart sounds: S1 normal heart sound present and S2 normal heart sound present GI: Inspection: Yes normal to inspection and No abdominal wall ecchymosis Palpation (GI): Soft to palpation, not firm, nontender, no guarding and not rigid : General: No CVA tenderness and Yes no CVA tenderness Back/Spine/Pelvis: Back: no CVA tenderness, No CVA tenderness and No back tenderness Skin: General skin exam: no rashes or lesions noted Neuro: General: oriented to person, oriented to place, oriented to time, patient oriented x3, no meningeal signs and CN's II-XI intact bilaterally Cranial nerves: Yes CN's II-XII intact bilaterally and Yes Normal hearing present Extrem: Other: left foot has small area of circular wound on dorsal aspect with slight erythema around the area. Patient states wound is actually improving from days before. He states erythema has significantly decreased and foot swelling has also significantly decreased. Vascular and neuro exam intact. Negative for any left leg swelling/redness/calf pain Course Course Course Narrative: will contact hospitalist. Reevaluation(s) Reevaluation #1: Spoke with hospitalist who states patient does not need to be admitted. She states she spoke with ID specialist Dr. Garcia who states patient does not need to be admitted and can be discharged with doxycycline. Surgery also seen patient yesterday and did not recommend any surgical intervention. Will contact Daniella Kline to evaluate patient. Time: 14:41 Reevaluation #2: and Daniella Kline spoke with patient and he agreed for treatment with Suboxone. She was sent prescription of Suboxone to the pharmacy. no need for repeat labs Time: 14:42 Medical Decision Making MDM Narrative Medical decision making narrative: opioid use disorder. Left foot cellulitis Discharge Plan Discharge Clinical Impression: Cellulitis, Opioid use disorder Patient Disposition: Home, Self-Care Instructions: Cellulitis (ED), Opioid Use Disorder (ED) Additional Instructions: return to ED for worsening foot swelling, redness, calf pain, fever, chills, weakness, nausea, vomiting, diarrhea of red streaks, calf pain, chest pain, shortness of breath, or any other concerning symptoms. Please follow-up with the PCP. Prescriptions: New buprenorphine-naloxone [Suboxone] 8-2 mg film 1 film buccal BID Qty: 14 RF: 0 doxycycline monohydrate 100 mg capsule 100 mg PO BID Qty: 20 RF: 0 No Action gabapentin 600 mg Tablet 1,200 mg PO TID RF: 0 baclofen 20 mg Tablet 20 mg PO TID RF: 0 albuterol sulfate [Ventolin HFA] 90 mcg/actuation Hfa Aerosol Inhaler 2 puff INHALATION Q4H PRN (Reason: Shortness Of Breath) RF: 0 Interventions: ED Discharge Assessment Last Done: 03/05/20 14:55 Discharge Date/Time: 03/05/20 14:58 Print Language: Albanian
--- NOTE | 2020-03-05 14:24 | MHC.CARE ---
Addiction Consult Service note: Patient is a 34 year old Indian speaking male who is known to this senior mortgage underwriter from a previous encounter yesterday. Patient reports he left AMA this morning due to discomfort and he is interested in getting antibiotics and Suboxone so that he can manage his condition at home. Discussed MAT with patient and provided patient with information on the CCC and MAT clinics in the area. Patient has an appointment scheduled at the [facility] for 03/10/20 at 11:00. Patient aware.
[2020-03-05] MEDS: Naloxone HCl Nasal TAKE HOME 4 MG SPRAY NOSTRILALT (14:33)
--- NOTE | 2020-03-05 14:37 | PC.NURSE ---
patient a&ox3, foot redressed per provider request, patient is satisfied with new plan- pt will be discharged with oral antibiotics and will be getting suboxone outpatient, patient given take home narcan as well, patient is calm/compliant, vss, will continue to monitor.
--- NOTE | 2020-03-05 16:25 | P.CNPS_ITS ---
History of Present Illness Chief Complaint: foot pain Reason for Consult: Addiction consult Requesting physician: Catarino Keller Discussed with referring provider: Yes Sources of Information: patient interviewed and chart reviewed HPI Narrative: patient is a 34-year-old male with history of opiate use disorder known to this screen writer through previous visit yesterday. 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 today he presents again to the ED with foot pain related to cellulitis. Consult requested as patient is going to be discharged home with p.o. antibiotics and he was verbalizing desire to be started on medications for opioid use disorder. Patient was seen in her room 21 of the main ED. He was awake alert and engaged in interview. Patient reports that he started to experience significant withdrawal symptoms early this morning and could not take it anymore. Current substance use: Reports using several 30 mg Percocet pills daily and if he is unable to obtain these he will use between 1-3 bundles of heroin daily. Last use reported as being 10:00. Discussed importance of being in moderate withdrawal prior to initiating Suboxone, patient reports that he is very familiar with this as he has precipitated withdrawal in the past. Discussed dosing times and follow-up. Patient also met with recovery print support specialist during visit to the ED as well Past Psychiatric History: not fully assessed, though patient reports significant history of PTSD Medical Evaluation Reviewed: Yes will be treated with p.o. antibiotics for cellulitis on his foot Review of Systems Gastrointestinal: Denies diarrhea, Denies loose stools, Denies nausea and Denies vomiting Musculoskeletal: Denies myalgias and Denies arthralgias Psychiatric: Reports anxiety, Reports hopelessness and Denies suicidal ideation [facility] Medical History Asthma Neuropathy Polysubstance abuse Diagnostics Vital Signs (24Hr): Vital Signs - 24 hr 03/05/20 12:42 03/05/20 14:00 Temperature 97.9 F 97.8 F Pulse Rate 81 80 Respiratory Rate 18 18 Blood Pressure 132/78 119/75 Pulse Oximetry 98 96 Body Mass Index 25.0 Mental Status Exam Mental Status Exam Patient Appearance: Appropriate Level of Consciousness: Awake and Alert Patient Behavior: Appropriate Mood Description: Calm Affect Description: Calm Ability to Follow Directions: Good Speech Pattern: Clear Thought Process: Intact Thought Content: positive for Intact Judgement: Fair Medications Allergies Allergies Allergy/AdvReac Type Severity Reaction Status Date / Time No Known Allergies Allergy Verified 03/02/20 18:49 [No Known Allergies*] Assessment & Plan Assessment & Plan (1) Opioid use disorder: Status: Acute Code(s): F11.99 - Opioid use, unspecified with unspecified opioid-induced disorder Recommendations: * prescription for suboxone 8/2mg BID sent pharmacy. Directions for when to start at home reinforced with patient * harm reduction discussion * take home narcan provided * appt at [facility] given for next week Greater than 50% of the session was spent on counseling and/or coordination of care
== END 2020-03-05 14:58 | disposition home or self-care (01) ==
PROVIDERS: Emergency Provider Emergency Medicine
DX: L03.116 Cellulitis of left lower limb (principal); F11.99 Opioid use, unspecified with unspecified opioid-induced disorder; Z71.51 Drug abuse counseling and surveillance of drug abuser; Z79.899 Other long term (current) drug therapy; F17.210 Nicotine dependence, cigarettes, uncomplicated; Z71.6 Tobacco abuse counseling
CPT/HCPCS: 99283; 99284

== ENCOUNTER 2025-04-07 18:22 | Emergency (ER) | payer MEDICAID, SELFPAY ==
[2025-04-07 18:35] VITALS: BP 182/104; PULSE 74; O2SAT 98
[2025-04-07 18:51] VITALS: BP 114/62; PULSE 107; RESP 18; TEMP 37.5; O2SAT 96; BMI 29.8
--- OUTSIDE RECORDS SUMMARY | 2025-04-07 19:09 | XMS_ITS | Clinical Summary ---
Author Organization [facility] Address [address] [place] [address] Care Team Providers Care [employer] Name Role Phone Hemanth Izaguirre Primary Care Provider [phone] Encounters Date Type Department Care Team Description 03/27/2025 11:40 AM EST Lab [facility] Department [address] [place] [phone] Referral of patient without examination or treatment; Stomach ache; Peripheral nerve disorder 03/23/2025 11:40 AM EST Lab [facility] Department [address] [place] [address] Referral of patient without examination or treatment (Primary Dx); Stomach ache; Peripheral nerve disorder from Last 3 Months Social History Tobacco Use Types Packs/Day Years Used Date Smoking Tobacco: Never Assessed Sex and Gender Information Value Date Recorded Sex Assigned at Male 03/27/2025 11:34 AM EST Legal Sex Male 11:17 AM EST Gender Identity Not on file Sexual Orientation Not on file Plan of Treatment Health Maintenance Due Date Last Done Comments Varicella Vaccines (1 of 2 - 13+ 2-dose series) 1998 Hepatitis B Vaccines (1 of 3 - 19+ 3-dose series) 2004 DTaP,Tdap,and Td Vaccines (1 - Tdap) 2007 Alcohol/Substance Use Screening 05/07/2024 Influenza Vaccine (#1) 2024 COVID-19 Vaccine ( - 2024-2 6 season) 2025 HIV Screening Completed 03/23/2025 Pneumococcal Vaccine: Pediat jeannette (0-5 Years) and At-Risk Patients (6-50 Years) Aged Out No longer eligible b ased on patient's age to complete this topic Procedures * Due to [place] state law, this organization might not be sharing negative HIV tests. Procedure Name Priority Date/Time Associated Diagnosis Comments ROSANNE, TITER AND PATTERN Routine 11:55 AM EST Referral of patient without examination or treatment Stomach ache Peripheral nerve disorder ROSANNE SCREEN, IFA, W/REFLEX TO TITER & PATTERN Routine 03/27/2025 11:55 AM EST Referral of patient without examination or treatment Stomach ache Peripheral nerve disorder ALLERGEN ADULT FOOD SPECIFIC PANEL, [id number] Routine 03/27/2025 11:55 AM EST Referral of patient without examination or treatment Stomach ache Peripheral nerve disorder RPR (DIAGNOSIS) W/REFLEX TO TITER & TPPA [id number] Routine 03/27/2025 11:55 AM EST Referral of patient without examination or treatment Stomach ache Peripheral nerve disorder URINALYSIS W/REFLEX TO MICROSCOPIC (NO CULTURE) Routine 03/27/2025 11:47 AM EST Referral of patient without examination or treatment Stomach ache Peripheral nerve disorder TICK BORNE DISEASE, ACUTE MOLECULAR [id number] Routine 03/23/2025 11:40 AM EST Referral of patient without examination or treatment Stomach ache Peripheral nerve disorder RHEUMATOID FACTOR Routine 03/23/2025 11: 40 AM EST Referral of patient without examination or treatment Stomach ache Peripheral nerve disorder MAGNESIUM Routine 03/23/2025 11:40 AM EST Referral of patient without examination or treatment Stomach ache Peripheral nerve disorder MILK COMPONENT [id number] Routine 03/23/2025 11:40 AM EST Referral of patient without examination or treatment Stomach ache Peripheral nerve disorder CELIAC DISEASE DIAGNOSITC PANEL Routine 03/23/2025 11:40 AM EST Referral of patient without examination or treatment Stomach ache Peripheral nerve disorder SEDIMENTATION RATE, AUTOMATED Routine 03/23/2025 11:40 AM EST Referral of patient without examination or treatment Stomach ache Peripheral nerve disorder LIPASE Routine 03/23/2025 11:40 AM EST Referral of patient without examination or treatment Stomach ache Peripheral nerve disorder IRON SATURATION Routine 03/23/2025 11:40 AM EST Referral of patient without examination or treatment Stomach ache Peripheral nerve disorder HEMOGLOBIN A1C Routine 03/23/2025 11:40 AM EST Referral of patient without examination or treatment Stomach ache Peripheral nerve disorder FOLATE Routine 03/23/2025 11:40 AM EST Referral of patient without examination or treatment Stomach ache Peripheral nerve disorder FERRITIN Routine 03/23/2025 11:40 AM EST Referral of patient without examination or treatment Stomach ache Peripheral nerve disorder CK Routine 03/23/2025 11:40 AM EST Referral of patient without examination or treatment Stomach ache Peripheral nerve disorder COMPREHENSIVE METABOLIC PANEL Routine 03/23/2025 11:40 AM EST Referral of patient without examination or treatment Stomach ache Peripheral nerve disorder CBC AUTO DIFFERENTIAL Routine 03/23/2025 11:40 AM EST Referral of patient without examination or treatment Stomach ache Peripheral nerve disorder HIV-1/2 ANTIGEN/ANTIBODIES 4TH GENERATION W/REFLEX Routine 03/23/2025 11:40 AM EST Referral of patient without examination or treatment Stomach ache Peripheral nerve disorder LIPID PANEL W/REFLEX TO DIRECT LDL Routine 03/23/2025 11:40 AM EST Referral of patient without examination or treatment Stomach ache Peripheral nerve disorder T4, FREE Routine 03/23/2025 11:40 AM EST Referral of patient without examination or treatment Stomach ache Peripheral nerve disorder TSH Routine 03/23/2025 11:40 AM EST Referral of patient without examination or treatment Stomach ache Peripheral nerve disorder from Last 3 Months Results * Due to [place] state law, this organization might not be sharing negative HIV tests. * (ABNORMAL) ROSANNE, Titer and Pattern (03/27/2025 11:55 AM EST) ROSANNE Titer 1 1:80(H) titer 04/01/2025 12:14 PM EST [employer] Comment: A low level ROSANNE titer may be present in pre-clinical autoimmune diseases and normal individuals. Reference Range <1:40 Negative 1:40-1:80 Low Antibody Level >1:80 Elevated Antibody Level ROSANNE Pattern 1 Nuclear, Homogeneo us(A) 04/01/2025 12:14 PM EST [employer] Comment: Homogeneous pattern is associated with systemic lupus erythematosus (SLE), drug-induced lupus and juvenile idiopathic arthritis. AC-1: Homogeneous International Consensus on ROSANNE Patterns (https://doi.org/10.1515/kzim-0783-8371) ROSANNE Titer 2 1:80(H) titer 04/01/2025 12:14 PM EST [employer] Comment: A low level ROSANNE titer may be present in pre-clinical autoimmune diseases and normal individuals. Reference Range <1:40 Negative 1:40-1:80 Low Antibody Level >1:80 Elevated Antibody Level ROSANNE Pattern 2 Nuclear, Speckled( A) 04/01/2025 12:14 PM EST [employer] Comment: Speckled pattern is associated with mixed connective tissue disease (MCTD), systemic lupus erythematosus (SLE), Sjogren's syndrome, dermatomyositis, and systemic sclerosis/polymyositis overlap. AC-2,4,5,29: Speckled International Consensus on ROSANNE Patterns (https://doi.org/10.1515/daqt-2604-6559) Blood Structure of peripheral vein / Unknown Venipuncture / Unknown 03/27/2025 11:55 AM EST 03/27/2025 11:55 AM EST Narrative [facility] [place] - 04/01/2025 12:14 PM EST [facility] Received Date: us Hemanth LEA LAB BLOOD ORDERABLES Final Re sult SHADY BURRELL [address] [facility] [address], [address] [place] [address], [facility] [address], [address] [place] [address], * (ABNORMAL) Allergen Adult Food Specific Panel, IgG (includes Casein,[place],Codfish,Coffee,[place],Egg White, Peanut,Soybean, Tomato, Wheat, Yeast) (03/27/2025 11:55 AM EST) [facility] Wheat IgG 11.4(H) <2.0 mcg/mL 04/02/2025 5:26 PM EST [facility] Comment: This test was performed using a kit that has not been cleared or approved by the FDA. The analytical performance characteristics of this test have been determined by [employer]. This test, and any food specific allergen IgG result, should not be used for the diagnosis of allergic or atopic disease states (except for sensitivity to milk in neonates and gluten sensitivity). The use of food specific allergen IgG results should be restricted to the assessment of response to therapeutic interventions. Tomato IgG 4.2(H) <2.0 mcg/mL 04/02/2025 5:26 PM EST [facility] Comment: This test was performed using a kit that has not been cleared or approved by the FDA. The analytical performance characteristics of this test have been determined by [employer]. This test, and any food specific allergen IgG result, should not be used for the diagnosis of allergic or atopic disease states (except for sensitivity to milk in neonates and gluten sensitivity). The use of food specific allergen IgG results should be restricted to the assessment of response to therapeutic interventions. Egg White IgG 6.1(H) <2.0 mcg/mL 04/02/2025 5:26 PM EST [facility] Comment: This test was performed using a kit that has not been cleared or approved by the FDA. The analytical performance characteristics of this test have been determined by [employer]. This test, and any food specific allergen IgG result, should not be used for the diagnosis of allergic or atopic disease states (except for sensitivity to milk in neonates and gluten sensitivity). The use of food specific allergen IgG results should be restricted to the assessment of response to therapeutic interventions. Casein IgG 16.8(H) <2.0 mcg/mL 04/02/2025 5:26 PM EST [facility] Comment: This test was performed using a kit that has not been cleared or approved by the FDA. The analytical performance characteristics of this test have been determined by [employer]. This test, and any food specific allergen IgG result, should not be used for the diagnosis of allergic or atopic disease states (except for sensitivity to milk in neonates and gluten sensitivity). The use of food specific allergen IgG results should be restricted to the assessment of response to therapeutic interventions. [place] IgG 8.7(H) <2.0 mcg/mL 04/02/2025 5:26 PM EST [facility] Comment: This test was performed using a kit that has not been cleared or approved by the FDA. The analytical performance characteristics of this test have been determined by [employer]. This test, and any food specific allergen IgG result, should not be used for the diagnosis of allergic or atopic disease states (except for sensitivity to milk in neonates and gluten sensitivity). The use of food specific allergen IgG results should be restricted to the assessment of response to therapeutic interventions. Yeast Bakers/Brewers IgG 6.9(H) <2.0 mcg/mL 04/02/2025 5:26 PM EST [facility] Comment: This test was performed using a kit that has not been cleared or approved by the FDA. The analytical performance characteristics of this test have been determined by [employer]. This test, and any food specific allergen IgG result, should not be used for the diagnosis of allergic or atopic disease states (except for sensitivity to milk in neonates and gluten sensitivity). The use of food specific allergen IgG results should be restricted to the assessment of response to therapeutic interventions. Peanut IgG 15.3(H) <2.0 mcg/mL 04/02/2025 5:26 PM EST [facility] Comment: This test was performed using a kit that has not been cleared or approved by the FDA. The analytical performance characteristics of this test have been determined by [employer]. This test, and any food specific allergen IgG result, should not be used for the diagnosis of allergic or atopic disease states (except for sensitivity to milk in neonates and gluten sensitivity). The use of food specific allergen IgG results should be restricted to the assessment of response to therapeutic interventions. Soybean IgG 3.4(H) <2.0 mcg/mL 04/02/2025 5:26 PM EST [facility] Comment: This test was performed using a kit that has not been cleared or approved by the FDA. The analytical performance characteristics of this test have been determined by [employer]. This test, and any food specific allergen IgG result, should not be used for the diagnosis of allergic or atopic disease states (except for sensitivity to milk in neonates and gluten sensitivity). The use of food specific allergen IgG results should be restricted to the assessment of response to therapeutic interventions. Codfish IgG <2.0 <2.0 mcg/mL 04/02/2025 5:26 PM EST [facility] Comment: This test was performed using a kit that has not been cleared or approved by the FDA. The analytical performance characteristics of this test have been determined by [employer]. This test, and any food specific allergen IgG result, should not be used for the diagnosis of allergic or atopic disease states (except for sensitivity to milk in neonates and gluten sensitivity). The use of food specific allergen IgG results should be restricted to the assessment of response to therapeutic interventions. [place] (Chocolate) IgG 5.5(H) <2.0 mcg/mL 04/02/2025 5:26 PM EST [facility] Comment: This test was performed using a kit that has not been cleared or approved by the FDA. The analytical performance characteristics of this test have been determined by [employer]. This test, and any food specific allergen IgG result, should not be used for the diagnosis of allergic or atopic disease states (except for sensitivity to milk in neonates and gluten sensitivity). The use of food specific allergen IgG results should be restricted to the assessment of response to therapeutic interventions. Coffee IgG 4.1(H) <2.0 mcg/mL 04/02/2025 5:26 PM EST [facility] Comment: This test was performed using a kit that has not been cleared or approved by the FDA. The analytical performance characteristics of this test have been determined by [employer]. This test, and any food specific allergen IgG result, should not be used for the diagnosis of allergic or atopic disease states (except for sensitivity to milk in neonates and gluten sensitivity). The use of food specific allergen IgG results should be restricted to the assessment of response to therapeutic interventions. Blood Structure of peripheral vein / Unknown Venipuncture / Unknown 03/27/2025 11:55 AM EST 03/27/2025 11:55 AM EST [facility]ative [facility]02/2025 5:26 PM EST [facility] Received Date: us Hemanth LEA LAB BLOOD ORDERABLES Final Re sult Performing Organization Address [facility] Co de Phone Number SHADY [address], [place] [address], [place] [phone] [facility] [address] [place] [address], [place] [phone] * RPR (Diagnosis) w/Reflex to Titer & TPPA Confirm (03/27/2025 11:55 AM EST) RPR W/Refl Titer NON-REACT CRISTINA NON-REACT CRISTINA 03/30/2025 2:03 PM EST [facility] Blood Structure of peripheral vein / Unknown Venipuncture / Unknown 03/27/2025 11:55 AM EST 03/27/2025 11:55 AM EST [facility]arrative [facility] 03/30/2025 2:03 PM EST [facility] Received Date: us Hemanth LEA LAB BLOOD ORDERABLES Final Re sult Performing Organization Address [facility] Co de Phone Number SHADY [address], [place] [address], [place] [phone] [employer] [address], [place] [address], [place] [phone] * (ABNORMAL) ROSANNE Screen, IFA, w/Reflex to Titer & Pattern (03/27/2025 11:55 AM EST) ROSANNE Screen, IFA POSITIVE (A) NEGATIVE 04/01/2025 12:14 PM EST [facility] Comment: ROSANNE IFA is a first line screen for detecting the presence of up to approximately 150 autoantibodies in various autoimmune diseases. A positive ROSANNE IFA result is suggestive of autoimmune disease and reflexes to titer and pattern. Further laboratory testing may be considered if clinically indicated. For additional information, please refer to http://education.Mingleplay/faq/JLN771 (This link is being provided for informational/ educational purposes only.) Blood Structure of peripheral vein / Unknown Venipuncture / Unknown 03/27/2025 11:55 AM EST 03/27/2025 11:55 AM EST Narrative SHADY BURRELL - 04/01/2025 12:14 PM EST [facility] Received Date: Hemanth LEA LAB BLOOD ORDERABLES Final Re sult [facility] [address] [facility] [address] [facility], [place] [address], [place] [phone] [facility] [address], [place] [address], [place] [phone] * Urinalysis W/Reflex to Microscopic (No Culture) (03/27/2025 11:47 AM EST) Color, Urine Yellow Yellow 03/27/2025 2:36 PM EST [facility] Clarity, Urine Clear Clear 03/27/2025 2:36 PM EST [facility] Specific [place], Urine <=1.005 1.005 - 1.030 03/27/2025 2:36 PM EST [facility] pH, Urine 6.5 5.0 - 8.0 03/27/2025 2:36 PM EST [facility] Protein, Urine Negative Negative mg/dL 03/27/2025 2:36 PM EST [facility] Glucose, Urine Negative Negative mg/dL 03/27/2025 2:36 PM EST [facility] Ketones, Urine Negative Negative mg/dL 03/27/2025 2:36 PM EST [facility] Bilirubin, Urine Negative Negative 03/27/2025 2:36 PM EST [facility] Blood, Urine Negative Negative 03/27/2025 2:36 PM EST [facility] Nitrite, Urine Negative Negative 03/27/2025 2:36 PM EST [facility] Urobilinogen, Urine 0.2 0.2 - 1.0 E.U./dL 03/27/2025 2:36 PM EST [facility] Leukocyte Esterase, Urine Negative Negative 03/27/2025 2:36 PM EST [facility] Urine Urine specimen collection, clean catch / Unknown Non-Blood Collection / Unknown 03/27/2025 11:47 AM EST 03/27/2025 11:47 AM EST [facility] - 03/27/2025 2:36 PM EST Microscopic not indicated according to established criteria. Hemanth LEA LAB URINE ORDERABLES Final Re sult [facility] [address] [place] [address] [address] [place] [address], * Tick Born Disease, Acute Molecular Panel (03/23/2025 11:40 AM EST) Anaplasma phagocytophilum DNA, QL Real Time PCR NOT DETECTED NOT DETECTED 03/24/2025 9:31 PM EST [facility] Comment: This test was developed and its analytical performance characteristics have been determined by [employer]. It has not been cleared or approved by the FDA. This assay has been validated pursuant to the CLIA regulations and is used for clinical purposes. Babesia microti DNA, Real Time PCR NOT DETECTED NOT DETECTED 03/24/2025 9:31 PM EST [facility] Comment: This test was developed and its analytical performance characteristics have been determined by [employer]. It has not been cleared or approved by the FDA. This assay has been validated pursuant to the CLIA regulations and is used for clinical purposes. B miyamotoi DNA PCR NOT DETECTED NOT DETECTED 03/24/2025 9:31 PM EST [facility] Comment: This test was developed and its analytical performance characteristics have been determined by [employer]. It has not been cleared or approved by the FDA. This assay has been validated pursuant to the CLIA regulations and is used for clinical purposes. Ehrlichia chaffeensis DNA Real Time PCR NOT DETECTED NOT DETECTED 03/24/2025 9:31 PM EST [employer] Comment: This test was developed and its analytical performance characteristics have been determined by [employer]. It has not been cleared or approved by the FDA. This assay has been validated pursuant to the CLIA regulations and is used for clinical purposes. Borrelia species DNA PCR NOT DETECTED NOT DETECTED 03/24/2025 9:31 PM EST [employer] Comment: This test was developed and its analytical performance characteristics have been determined by [employer]. It has not been cleared or approved by the FDA. This assay has been validated pursuant to the CLIA regulations and is used for clinical purposes. Borrelia species DNA PCR Comment See Comments 03/24/2025 9:31 PM EST [employer] Comment: A negative result does not exclude Borrelia infection as the concentration of the organism in blood may be low or non-existent in patients with Lyme disease, and may depend on timing of specimen collection from onset of symptoms. Clinical correlation is recommended and additional studies such as serologic testing may be indicated. For additional information, please refer to https://education.MyDentist.judge.me/faq/yne509 (This link is being provided for informational/ educational purposes only.) Blood Structure of peripheral vein / Unknown Venipuncture / Unknown 03/23/2025 11:40 AM EST 03/23/2025 11:[address] [facility] - 03/24/2025 9:31 PM EST [facility] Received Date: Hemanth W [place] LAB BLOOD ORDERABLES Final Re sult SHADY BURRELL [address] [facility] [address], [place] [address], [facility] [address] [facility] [address], [place] [address], [place] [phone] * Celiac Diagnostic Panel w/Gliadin, All Ages (Includes: IgA, tTG IgA/IgG and Giadin IgA/IgG) (03/23/2025 11:40 AM EST) Tissue Transglutaminase Ab, IgG <1.0 U/mL 03/24/2025 2:10 PM EST [facility] Comment: Value Interpretation ----- <15.0 Antibody not detected > or = 15.0 Antibody detected Tissue Transglutaminase Ab, IgA <1.0 U/mL 03/24/2025 2:10 PM [employer] [facility] Comment: Value Interpretation ----- <15.0 Antibody not detected > or = 15.0 Antibody detected Gliadin Ab IgA <1.0 U/mL 03/24/2025 2:10 PM [employer] [facility] Comment: Value Interpretation ----- <15.0 Antibody not detected > or = 15.0 Antibody detected Gliadin Ab IgG <1.0 U/mL 03/24/2025 2:10 PM [employer] [facility] Comment: Value Interpretation ----- <15.0 Antibody not detected > or = 15.0 Antibody detected Immunoglobulin A 140 47 - 310 mg/dL 03/24/2025 2:10 PM [employer] [facility] Blood Structure of peripheral vein / Unknown Venipuncture / Unknown 03/23/2025 11:40 AM EST 03/23/2025 11:[address] [facility] - 03/24/2025 2:10 PM EST [facility] Received Date:[id number] us Hemanth LEA LAB BLOOD ORDERABLES Final Re sult [facility] [address] [facility] [address], [place] [address], [place] [phone] [facility] [address] [facility] 3[address], [place] [address], [place] [phone] * Iron Saturation (03/23/2025 11:40 AM EST) Iron 135 59 - 158 ug/dL 03/23/2025 3:11 PM EST [facility] Unsaturated Iron Binding 300.0 112.0 - 347.0 ug/dL 03/23/2025 3:11 PM EST [facility] Transferrin Saturation 31 20 - 50 % 03/23/2025 3:11 PM EST [facility] Blood Structure of peripheral vein / Unknown Venipuncture / Unknown 03/23/2025 11:40 AM EST 03/23/2025 11:40 AM EST Hemanth LEA LAB BLOOD ORDERABLES Final Re sult [facility] [address] [facility] [address] [place] [address], [place] [phone] * Lipid Panel w/Reflex to Direct LDL (03/23/2025 11:40 AM EST) Cholesterol 229 mg/dL 03/23/2025 3:11 PM EST [facility] Comment: DESIRABLE: <200 mg/dL BORDERLINE HIGH: 200-239 mg/dL HIGH: >239 mg/dL Triglycerides 168 mg/dL 03/23/2025 3:11 PM EST [facility] Comment: NORMAL: <150 mg/dL BORDERLINE HIGH: 150-199 mg/dL HIGH: 200-499 mg/dL VERY HIGH >499 mg/dL Cholesterol, HDL 51 mg/dL 03/23/20 3:11 PM EST [facility] Comment: DESIRABLE: >60 mg/dL BORDERLINE: 40-59 mg/dL UNDESIRABLE: <40 mg/dL LDL Cholesterol 144 mg/dL 3:11 PM EST [facility] Comment: OPTIMAL: <100 mg/dL NEAR OPTIMAL: <130 mg/dL BORDERLINE HIGH: 130-159 mg/dL HIGH: 160-189 mg/dL VERY HIGH: >189 mg/dL LDL-C is calculated using the Friedewald calculation. VLDL 33.6 mg/dL 03/23/2025 3:11 PM EST [facility] Cholesterol/HDL Ratio 4.5 03/23/2025 3:11 PM EST [facility] Blood Structure of peripheral vein / Unknown Venipuncture / Unknown 03/23/2025 11:40 AM EST 03/23/2025 11:40 AM EST [facility] BLOOD ORDERABLES Final Re sult Performing Organization Address City/State/[facility] Co de Phone Number [facility] [address] [place] [phone], * (ABNORMAL) Milk Component Panel (03/23/2025 11:40 AM EST) Allergen Alpha-Lactalbumin (F76) IgE 0.19(H) kU/L 03/25/2025 5:33 AM EST [facility] Allergen Alpha-Lactalbumin Class 0/1 03/25/2025 5:33 AM EST [facility] Allergen Beta-Lactoglobulin (F77) IgE <0.10 kU/L 03/25/2025 5:33 AM EST [facility] Allergen Beta-Lactoglobulin Class 0 03/25/2025 5:33 AM EST [facility] Allergen Casein (F78) IgE <0.10 kU/L 03/25/2025 5:33 AM EST [facility] Allergen Casein Class 0 03/25/2025 5:33 AM EST [facility] Comment: Positive cow's milk component IgE results may be clinically significant even if quantification levels (kU/L) are low. Marck d 8 (casein) is resistant to heat denaturation and IgE reactivity to this milk component is associated with allergic reactions to both raw and cooked milk, even in baked goods. Marck d 4 (alpha-lactalbumin) and Marck d 5 (beta-lactoglobulin) are relatively susceptible to heat denaturation. While IgE reactivity to Marck d 4 and/or Marck d 5 are associated with allergic reactions to raw milk, in baked goods, milk may be tolerated. Children with IgE reactivity directed primarily to Marck d 4 and Marck d 5 are more likely to outgrow their cow's milk allergy than children with IgE reactivity directed primarily to Marck d 8. Additional information can be found at [email or web address] Interpretation See Comments 03/25/2025 5:33 AM EST [facility] Comment: Specific Level of Allergen IGE Class kU/L Specific IGE Antibody ----- --------- 0 <0.10 Absent/Undetectable 0/1 0.10-0.34 Very Low Level 1 0.35-0.69 Low Level 2 0.70-3.49 Moderate Level 3 3.50-17.4 High Level 4 17.5-49.9 Very High Level 5 50-100 Very High Level 6 >100 Very High Level The clinical relevance of allergen results of 0.10-0.34 kU/L are undetermined and intended for specialist use. Allergens denoted with a include results using one or more analyte specific reagents. In those cases, the test was developed and its analytical performance characteristics have been determined by [employer]. It has not been cleared or approved by the U.S. Food and Drug Administration. This assay has been validated pursuant to the CLIA regulations and is used for clinical purposes. Blood Structure of peripheral vein / Unknown Venipuncture / Unknown 03/23/2025 11:40 AM EST 03/23/2025 11:40 AM EST Anthony CARUSO INDRA - 03/25/2025 5:33 AM EST [facility] Received Date: [facility] BLOOD ORDERABLES Final Re sult SHADY BURRELL [address], [place] [address], [place] [phone] [facility] [address], [place] [address], * (ABNORMAL) CBC Auto Differential (03/23/2025 11:40 AM EST) WBC 6.8 4.8 - 10.8 10*3/uL 03/23/2025 2:45 PM EST [facility] RBC 5.98 4.70 - 6.10 10*6/uL 03/23/2025 2:45 PM EST [facility] Hemoglobin 16.4 13.7 - 16.5 g/dL 03/23/2025 2:45 PM EST [facility] Hematocrit 48.6(H) 40.5 - 48.5 % 03/23/2025 2:45 PM EST [facility] MCV 81.3 80.0 - 94.0 fL 03/23/2025 2:45 PM EST [facility] MCH 27.4 26.0 - 34.0 pg 03/23/2025 2:45 PM EST [facility] MCHC 33.7 31.0 - 36.0 g/dL 03/23/2025 2:45 PM EST [facility] RDW 12.8 12.0 - 15.0 % 03/23/2025 2:45 PM EST [facility] RDW Standard Deviation 37.9 35.1 - 43.9 fL 03/23/2025 2:45 PM EST [facility] Platelets 216 140 - 440 10*3/uL 03/23/2025 2:45 PM EST [facility] MPV 11.2 9.4 - 12.4 fL 03/23/2025 2:45 PM EST [facility] Neutrophil % 67.9 50.0 - 75.0 % 03/23/2025 2:45 PM EST [facility] Immature Grans % 0.3 0.0 - 0.9 % 03/23/2025 2:45 PM EST [facility] Lymphocyte % 25.8 20.0 - 44.0 % 03/23/2025 2:45 PM EST [facility] Monocyte % 5.6 0.0 - 14.0 % 03/23/2025 2:45 PM EST [facility] Eosinophil % 0.0 0.0 - 5.0 % 03/23/2025 2:45 PM EST [facility] Basophil % 0.4 0.0 - 2.0 % 03/23/2025 2:45 PM EST [facility] Neutrophil # 4.61 1.80 - 7.70 10*3/uL 03/23/2025 2:45 PM EST [facility] Immature Grans # <0.03 0.00 - 0.03 10*3/uL 03/23/2025 2:45 PM EST [facility] Lymphocyte # 1.80 1.00 - 4.75 10*3/uL 03/23/2025 2:45 PM EST [facility] Monocyte # 0.40 0.00 - 0.60 10*3/uL 03/23/2025 2:45 PM EST [facility] Eosinophil # <0.03 0.00 - 0.80 10*3/uL 03/23/2025 2:45 PM EST [facility] Basophil # <0.03 0.00 - 0.20 10*3/uL 03/23/2025 2:45 PM EST [facility] nRBC % 0.0 0 - 0 /100 WBCs 03/23/2025 2:45 PM EST [facility] nRBC # <0.01 0.00 - 0.13 10*3/uL 03/23/2025 2:45 PM EST [facility] Blood Structure of peripheral vein / Unknown Venipuncture / Unknown 03/23/2025 11:40 AM EST 03/23/2025 11:40 AM EST [facility] BLOOD ORDERABLES Final Re sult [facility] [address] [place] [phone], * HIV-1/2 Antigen/Antibodies 4th Generation w/Reflex (03/23/2025 11:40 AM EST) HIV Final Interp HIV NEGATIVE 03/24/2025 7:53 AM EST [facility] Comment: HIV-1 antigen and HIV-1/HIV-2 antibodies were not detected. There is no laboratory evidence of HIV infection. Blood Structure of peripheral vein / Unknown Venipuncture / Unknown 03/23/2025 11:40 AM EST 03/23/2025 11:40 AM EST Narrative [facility] - 03/24/2025 7:53 AM EST [facility] Received Date: us Hem[facility] BLOOD ORDERABLES Final Re sult Performing Organization Address City/[facility]/ZIP Co de Phone Number [facility] [address] [facility], [place] [address], [place] [phone] [facility] [address] [facility] [address], [place] [address], [place] [phone] * Sedimentation Rate (03/23/2025 11:40 AM EST) Pathologist [facility] Sed Rate 6 0 - 14 mm/Hr 03/23/2025 2:51 PM EST [facility] Blood Structure of peripheral vein / Unknown Venipuncture / Unknown 03/23/2025 11:40 AM EST 03/23/2025 11:40 AM EST us [facility] BLOOD ORDERABLES Final Re sult [facility] [address] [place] [address], [place] [phone] * Rheumatoid Factor (03/23/2025 11:40 AM EST) Pathologist [facility] RF <10.00 <=14.00 IU/mL 03/23/2025 3:32 PM EST [facility] Comment:Lower detection limi t of test is 10.0 IU/mL Blood Structure of peripheral vein / Unknown Venipuncture / Unknown 03/23/2025 11:40 AM EST 03/23/2025 11:40 AM EST us [facility] BLOOD ORDERABLES Final Re sult Performing Organization Address [facility] de Phone Number [facility] [address] [address], * TSH (03/23/2025 11:40 AM EST) TSH 0.568 0.270 - 4.200 uIU/mL 03/23/2025 4:18 PM EST [facility] Blood Structure of peripheral vein / Unknown Venipuncture / Unknown 03/23/2025 11:40 AM EST 03/23/2025 11:40 AM EST us [facility] BLOOD ORDERABLES Final Re sult Performing Organization Address [facility] Co de Phone Number [facility] [address] [place] [address], [place] [phone] * T4, Free (03/23/2025 11:40 AM EST) Free T4 1.60 0.80 - 1.80 ng/dL 03/23/2025 4:18 PM EST [facility] Comment: Females: (ng/dL) First Trimester 0.95-1.58 ng/dL Second Trimester 0.76-1.24 ng/dL Third Trimester 0.70-1.25 ng/dL Dietary supplements containing biotin may interfere in assays and may skew analyte results to be falsely high. For patients receiving the recommended daily doses of biotin, draw samples at least 8 hours following the last biotin supplementation. For patients on topher-doses of biotin supplements, draw samples at least 72 hours following the last biotin supplementation. Effective 2024, Free T4 reference range (>=18 years old) is 0.8 - 1.8 ng/dL, replacing the previous range of 0.93 - 1.70 ng/dL. Blood Structure of peripheral vein / Unknown Venipuncture / Unknown 03/23/2025 11:40 AM EST 03/23/2025 11:40 AM EST us [facility] BLOOD ORDERABLES Final Re sult Performing Organization Address [facility]/ZIP Co de Phone Number [facility] [address] [address], [place] [phone] * Magnesium (03/23/2025 11:40 AM EST) MG 2.2 1.5 - 2.5 mg/dL 03/23/2025 3:11 PM EST [facility] Blood Structure of peripheral vein / Unknown Venipuncture / Unknown 03/23/2025 11:40 AM EST 03/23/2025 11:40 AM EST us [facility] BLOOD ORDERABLES Final Re sult Performing Organization Address [facility] Co de Phone Number [facility] [address] [address], [place] [phone] * Lipase (03/23/2025 11:40 AM EST) Lipase 27 13 - 60 U/L 03/23/2025 3:11 PM EST [facility] Blood Structure of peripheral vein / Unknown Venipuncture / Unknown 03/23/2025 11:40 AM EST 03/23/2025 11:40 AM EST us Hem[facility] BLOOD ORDERABLES Final Re sult Performing Organization Address [facility] Co de Phone Number [facility] [address] [address], [place] [phone] * Hemoglobin A1c (03/23/2025 11:40 AM EST) Hemoglobin A1c 5.3 4.0 - 5.7 % 03/23/2025 3:06 PM EST [facility] Estimated Average Glucose 105 mg/dL 03/23/2025 3:06 PM EST [facility] Blood Structure of peripheral vein / Unknown Venipuncture / Unknown 03/23/2025 11:40 AM EST 03/23/2025 11:40 AM EST us Hem[facility] BLOOD ORDERABLES Final Re sult Performing Organization Address City/[facility]/ZIP Co de Phone Number [facility] [address] [address], [place] [phone] * (ABNORMAL) Folate (03/23/2025 11:40 AM EST) Folate >=20.0(H) 4.8 - 19.9 ng/mL 03/23/2025 3:56 PM EST [facility] Blood Structure of peripheral vein / Unknown Venipuncture / Unknown 03/23/2025 11:40 AM EST 03/23/2025 11:40 AM EST us Hem[facility] BLOOD ORDERABLES Final Re sult Performing Organization Address [facility] Co de Phone Number [facility] [address] [address], [place] [phone] * Ferritin (03/23/2025 11:40 AM EST) Ferritin 34.6 30.0 - 400.0 ng/mL 03/23/2025 4:18 PM EST [facility] Blood Structure of peripheral vein / Unknown Venipuncture / Unknown 03/23/2025 11:40 AM EST 03/23/2025 11:40 AM EST us [facility] BLOOD ORDERABLES Final Re sult Performing Organization Address City/[facility]/ZIP Co de Phone Number [facility] [address] [address], [place] [phone] * Creatine Kinase (03/23/2025 11:40 AM EST) CK 77 39 - 308 U/L 03/23/2025 3:11 PM EST [facility] Blood Structure of peripheral vein / Unknown Venipuncture / Unknown 03/23/2025 11:40 AM EST 03/23/2025 11:40 AM EST [facility] BLOOD ORDERABLES Final Re sult [facility] [address] [place] [address], [place] [phone] * (ABNORMAL) Comprehensive Metabolic Panel (03/23/2025 11:40 AM EST) NA 139 136 - 145 mmol/L 03/23/2025 3:11 PM EST [facility] K 3.9 3.5 - 5.1 mmol/L 03/23/2025 3:11 PM EST [facility] Cl 104 97 - 110 mmol/L 03/23/2025 3:11 PM EST [facility] CO2 21(L) 22 - 32 mmol/L 03/23/2025 3:11 PM EST [facility] Anion Gap 18 >=0 03/23/2025 3:11 PM EST [facility] Glucose 89 60 - 99 mg/dL 03/23/2025 3:11 PM EST [facility] Creatinine 0.67 0.50 - 1.12 mg/dL 03/23/2025 3:11 PM EST [facility] Calcium 10.0 8.4 - 10.4 mg/dL 03/23/2025 3:11 PM EST [facility] Total Protein 8.0 6.6 - 8.7 g/dL 03/23/2025 3:11 PM EST [facility] Albumin 4.7 3.5 - 5.0 g/dL 03/23/2025 3:11 PM EST [facility] Bilirubin, Total 0.5 0.2 - 1.2 mg/dL 03/23/2025 3:11 PM EST [facility] Alkaline Phosphatase 78 40 - 129 U/L 03/23/2025 3:11 PM EST [facility] AST 23 0 - 40 U/L 03/23/2025 3:11 PM EST [facility] ALT 16 <=41 U/L 03/23/2025 3:11 PM EST [facility] BUN 15 6 - 20 mg/dL 03/23/2025 3:11 PM EST [facility] eGFR >90 >=60 mL/min/1. 73m2 03/23/2025 3:11 PM EST [facility] Comment:The estimated glomer ular filtration rate (eGFR) is calculated using a new formula developed by the NKF-ASN task force to eliminate race-based correction factors. The new formula uses serum/plasma creatinine, age, and gender to determine eGFR. A value below 60mls/min might indicate kidney disease and will be flagged. For additional information, see Coleman et al, Am J Kidney Dis. 2021;79(2):268- 288, A Unifying Approach for GFR estimation: Recommendations of the NKF-ASN Task Force on Reassessing the Inclusion of Race in Diagnosing Kidney Disease . Globulin, Total 3.3 2.1 - 4.2 g/dL 03/23/2025 3:11 PM EST [facility] A/G Ratio 1.4(L) 1.5 - 3.0 03/23/2025 3:11 PM EST [facility] Blood Structure of peripheral vein / Unknown Venipuncture / Unknown 03/23/2025 11:40 AM EST 03/23/2025 11:40 AM EST [facility] BLOOD ORDERABLES Final Re sult [facility] [address] [place] [address], [place] [phone] from Last 3 Months Insurance [facility] Care Teams [place] [employer] Relationship Specialty Start Date End Date Hemanth Izaguirre PA [address] [place] [address] PCP - General Internal Medicine 03/23/25
[2025-04-07 19:18] VITALS: BP 114/62; PULSE 107; RESP 18; TEMP 37.5; O2SAT 96
--- NOTE | 2025-04-07 19:41 | ED_ITS ---
HPI - General Adult General Chief complaint: General Medical Stated complaint: 11/13 pain in lower extremites & hips no falls n/v Time Seen by Provider: 04/07/25 19:11 Source: patient Mode of arrival: ambulatory Limitations: no limitations History of Present Illness ED Provider: Dr. Russell HPI narrative: This is a 39-year-old male presented hospital today for bilateral feet pain. Patient stated he has no place to stay at this time. He states he has a blister on his left foot. The patient stated that he is coming from [place]. He does have underlying neuropathy in his feet bilaterally. Related Data Home Medications ?Medication ?Instructions ?Recorded ?Confirmed baclofen 20 mg tablet 20 mg PO TID 03/02/20 gabapentin 600 mg tablet 1,200 mg PO TID 03/02/20 albuterol sulfate 90 mcg/actuation 2 puff inhalation Q 4H PRN 03/04/20 03/04/20 aerosol inhaler (Ventolin HFA) Shortness Of Breath Previous Rx's ?Medication ?Instructions ?Recorded buprenorphine 8 mg-naloxone 2 mg 1 film buccal BID #14 ea 03/05/20 sublingual film (Suboxone) doxycycline monohydrate 100 mg 100 mg PO BID #20 caps 03/05/20 capsule Allergies Allergy/AdvReac Type Severity Reaction Status Date / Time No Known Allergies (No Known Allergy Verified 04/07/25 18:58 Allergies*) Review of Systems Review of Systems: Pertinent review of systems as mentioned in HPI. All other system otherwise negative. [facility] Past Medical History [facility] Narrative: Reported neuropathy Medical History Asthma Neuropathy Polysubstance abuse Family History Family History Other No family history of coronary artery disease Social History Social History Household Members: Children Household Members Other:: mother of child Housing: Apartment Do you presently have visiting nurse or other home services: No Alcohol intake: never Comment: sleeping Cigarette Packs Per Day: 0.5 Cigarettes Per Day: 10 Years Smoked: 6 Second Hand Smoke Exposure: No Substance Use Type: Heroin Advance Directives: No Advance Directives Information Provided: No Physical Exam ED Exam Exam: General: Irritable loud, Head: Normacephalic, atraumatic ENT: oral mucosa moist, neck supple, no tracheal deviation Cardiovascular: regular rate, regular rhythm, no murmurs, rubbing, gallops Respiratory: Does not appear to be in respiratory distress Extremities: No signs of cellulitis, Pulse intact and sensation intact bilaterally, full range of motion. Neurological: Awake and alert, no facial droop noted Skin: Warm and dry Vital Signs: Vital Signs - 24 hr 04/07/25 18:51 04/07/25 19:18 Temperature 99.5 F 99.5 F Pulse Rate 107 H 107 H Respiratory Rate 18 18 Blood Pressure 114/62 114/62 Pulse Oximetry 96 96 Oxygen Delivery Method Room Air Room Air BMI result Body Mass Index 29.8 Medical Decision Making Medical Decision Making MDM Narrative: 39-year-old male presented hospital today for bilateral feet pain and blisters. Patient stated that he is homeless. He does not want to be out in the cold at this time. According to nursing staff mom did call an [employer] for the patient. Patient is very loud irritable disrespectful to staff. Cussing at the phone. I do not think patient has any acute emergent medical condition at this time. Patient is cleared medical screening. Patient will be discharged. Differential Diagnosis Differential Diagnoses: The differential diagnosis associated with the presentation includes Agitation, foot pain, Cellulitis Discharge Plan Discharge Clinical Impression: Bilateral foot pain Patient Disposition: Home, Self-Care Prescriptions: No Action gabapentin 600 mg Tablet 1,200 mg PO TID baclofen 20 mg Tablet 20 mg PO TID buprenorphine-naloxone [Suboxone] 8-2 mg film 1 film buccal BID Qty: 14 0RF doxycycline monohydrate 100 mg capsule 100 mg PO BID Qty: 20 0RF albuterol sulfate [Ventolin HFA] 90 mcg/actuation Hfa Aerosol Inhaler 2 puff INHALATION Q4H PRN (Reason: Shortness Of Breath) Rx Instructions: NOT YET FILLED/PICKED UP AT PHARMACY DUE TO INS. Print Language: Peruvian
--- NOTE | 2025-04-07 19:41 | PC.NURSE ---
pt is c/o in [place] that ER is not taking any of his complaints seriously. ER doctor at bedside. Pt stated you are not concerned with my medical complaints - pt stating he has been walking around and has blisters on his feel. No broken areas when observed. patient is on gabapentin for non-diabetic neuropathy he reports. MD stated he is ready to be discharged at this time. patient was given an phone to arrange his transportation.
[2025-04-07 19:44] VITALS: BP 114/62; PULSE 107; RESP 18; TEMP 37.5; O2SAT 96
--- NOTE | 2025-04-07 19:53 | PC.NURSE ---
security was called to get patient to hang up phone with his father and sign his d/c papers. pt was informed we have a phone in the lobby he is welcome to use and may stay there til his ride arrives.
== END 2025-04-07 19:59 | disposition home or self-care (01) ==
PROVIDERS: Emergency Provider Student in an Organized Health Care Education/Training Program
DX: M79.672 Pain in left foot (principal); M79.671 Pain in right foot
CPT/HCPCS: 99283